=== PATIENT | female | born 1950 | race Caucasian/White ===

== ENCOUNTER 2022-11-05 08:39 | Outpatient (CLI) | payer MEDICARE, BC, SELFPAY ==
--- NOTE | 2022-11-05 09:15 | MR_ITS ---
[address] [address] Phone:?[phone] Fax:?[phone] Referring Physician Information: Papito Vaughn [address] [facility] [address] Phone:?[phone] Fax:?[phone] Patient:?Kesha Wilkinson D.O.B:?1950 Sex:?Female Phone:?[phone] [facility] MRN:?[id number] Exam Date:?11/05/2022 ? EXAM: MRI of the RIGHT KNEE, without contrast CLINICAL INFORMATION: Female, 72 years old, with right knee pain and history of synovial chondromatosis. INDICATION: Evaluate knee pain. PRIOR SURGERY: None reported. PLAIN FILMS: Knee radiographs dated 10/30/2020. COMPARISONS: No prior MRIs available. TECHNICAL INFORMATION: Using a 1.5T MR scanner and a localizing surface coil: sagittals: PD, PDFS coronals: PD, T2FS axials: PD, PDFS SEDATION: None CONTRAST: None FINDINGS: Knee joint: Effusion: Moderate right knee effusion, with synovitis. Popliteal cyst: Peauu-zlmgct-zrrgc popliteal (Escamilla's) cyst with approximately 10 subcentimeter ossific loose bodies located within the cyst. Loose bodies: A 5 mm ossific intra-articular body is present interposed in the central, weightbearing aspect of the lateral compartment (coronal STIR series 8 image 20). Additionally, there are 3 or 4 small ossific intra-articular bodies in the anterior aspect of the lateral compartment, likely located within a small ganglion cyst (sagittal PDFS series 6 image 9 and axial PDFS series 4 images 23 & 24). Subcutaneous and extra-articular soft tissues: Moderate-marked anterior subcutaneous soft tissue swelling extending from the patella to the tibial tubercle. Ligaments: ACL: Intact ACL anteromedial and posterolateral bundles, without sprain or tear. PCL: Intact PCL, without acute or chronic injury. MCL: Intact MCL superficial and deep layers, without injury. LCL: Intact LCL, without injury. Posterolateral corner: No posterolateral corner soft tissue injury. Popliteus, biceps femoris, iliotibial band, popliteofibular ligament and lateral gastrocnemius are intact. Posteromedial corner: No posteromedial corner soft tissue injury. Semimembranosus, pes anserine tendons and posterior oblique ligament are without injury, tendinopathy or bursitis. Extensor mechanism: Patellar tendon: Intact, without tendinopathy. Quadriceps tendon: Intact, without tendinopathy. Retinacula: Medial and lateral retinacula are intact. Fat pads: Moderate soft tissue edema is present throughout the knee fat pads, in keeping with synovitis. Medial compartment: Medial meniscus: Apical free edge and undersurface fraying is present throughout the medial meniscal body, without more well-defined medial meniscal tearing. Intrasubstance degeneration is present at the posterior horn/body junction. Medial femoral condyle: Broad-based grade II/III chondromalacia of the central surface, with mild marginal osteophytosis. Medial tibial plateau: Broad-based grade II chondromalacia of the medial tibial plateau, minimal marginal osteophytosis. Lateral compartment: Lateral meniscus: Apical free edge and superior surface fraying of the lateral meniscal body, without more well-defined lateral meniscal tear. However, meniscal extrusion measures 3 mm. No parameniscal cyst. Lateral femoral condyle: Generalized grade III chondromalacia of the lateral femoral condyle with a 5 x 16 mm full-thickness chondral defect of the central surface (coronal STIR series 8 image 21 and sagittal PDFS series 6 image 11). Mild-moderate marginal osteophytosis. Lateral tibial plateau: Generalized grade III/IV chondromalacia of the lateral tibial plateau, with mild marginal osteophytosis. Patellofemoral joint: Patella: Generalized grade III/IV chondromalacia of the patella, with moderate marginal osteophytosis. Trochlea: Generalized grade IV chondromalacia of the trochlea, with moderate- marked marginal osteophytosis. Proximal tibiofibular joint: Unremarkable, without evidence of ligament sprain injury, joint effusion or adjacent marrow edema. Bones: No stress/occult fractures or other marrow edema/pathology. IMPRESSION: 1. Advanced osteoarthritis of the patellofemoral compartment. 2. Moderate-advanced osteoarthritis of the lateral compartment. 3. Mild osteoarthritis of the medial compartment. 4. Moderate knee joint effusion with synovitis and a knvtg-bcewnh-gvrgj popliteal (Escamilla's) cyst. There are approximately 10 loose bodies located within the popliteal cyst and 5 additional ossific bodies in the joint space, largest of which is interposed in the central aspect of the lateral compartment measuring up to 5 mm. 5. Apical free edge and undersurface fraying of the medial meniscal body. Additionally, there is apical free edge and superior surface fraying of the lateral meniscal body. No evidence of a more well-defined or lateral meniscal tear. 6. No cruciate or collateral ligament sprain/tear. 7. No osseous or myotendinous abnormality. BC Electronically signed on 11/05/2022 12:55:00 PM by Luis Louis M.D.
== END 2022-11-05 08:40 | disposition home or self-care (01) ==
LOC: MRI 08:41
PROVIDERS: PCP Family Medicine; Visit Provider Physician Assistant
DX: M25.561 Pain in right knee (principal); M17.11 Unilateral primary osteoarthritis, right knee; M25.461 Effusion, right knee; M71.21 Synovial cyst of popliteal space [Baker], right knee; M23.41 Loose body in knee, right knee
CPT/HCPCS: 73721

== ENCOUNTER 2023-11-13 14:30 | Outpatient (CLI) | payer MEDICARE, BC, SELFPAY ==
--- OUTSIDE RECORDS SUMMARY | 2023-11-13 14:34 | XMS_ITS | Clinical Summary ---
Author Name Unknown Organization [facility] Address [address] [place] [address] Care Team Providers Care Horizontal Drill Operator Name Role Phone Elsewhere, Pcp Primary Care Provider Unavailabl e Source Comments Patient records contain information from all sites at [facility]. For routine questions regarding patient records, call [phone] during business hours, M-F 8:00 AM - 5:00 PM Central Time. Record requests for emergency care only can be directed to [phone] at any time.[facility] Allergies Active Allergy Reactions Criticality Noted Date Comments Codeine GI intolerance 02/26/2011 Hydrocodone-Acetaminophen GI intolerance 2010 Medications Medication Sig Dispensed Refills Start Date End Date Status TRUCK HOPPER THYROID 30 mg tablet Take 30 mg by mouth 2 (two) times a day. 3 02/15/2019 Active naproxen (NAPROSYN) 375 mg tablet Take 375 mg by mouth. 0 07/07/2018 Active acetaminophen (TYLENOL) 325 mg tablet 1-2 tablets every 4-6 hours as needed 0 07/15/2016 Active levothyroxine (SYNTHROID, LEVOTHROID) 88 mcg tablet Take 88 mcg by mouth daily with breakfast. 0 02/16/2021 Active Active Problems Problem Noted Date Diagnosed Date Autoimmune Thyroid Disease 04/26/2021 Cystocele 04/26/2021 Overview: Managing symptomatic cystocele effectively with pessary. Incontinence Urinary Stress Female 04/26/2021 Overview: Managing stress urinary incontinence effectively with anti incontinence pessary. Pessary Check 04/26/2021 Overview: Utilizing size 5 ring pessary without support with knob for management of her stress urinary incontinence. Managing independently. No concerns. Follow-up as needed. Obesity Unspecified 01/12/2018 Immunizations Name Administration Dates Next Due Tdap 05/31/2009 Social History Tobacco Use Types Packs/Day Years Used Date Smoking Tobacco: Never Smokeless Tobacco: Never Alcohol Use Standard Drinks/Week Comments Yes 5 (1 standard drink = 0.6 oz pur e alcohol) Humiliation, Afraid, Rape, and Kick questionnair e Answer Date Recorded Within the last year, have y ou been afraid of your partner or ex-partner? No 04/25/2021 Within the last year, have y ou been humiliated or emotionally abused in other ways by your partner or ex-partner? No Within the last year, have y ou been kicked, hit, slapped, or otherwise physically hurt by your partner or ex-partner? No 04/25/2021 Within the last year, have y ou been raped or forced to have any kind of sexual activity by your partner or ex-partner? No 04/25/2021 Social Connection and Isolation Panel [NHANES] A nswer Date Recorded In a typical week, how many times do you talk on the phone with family, friends, or neighbors? Twice a week 04/25/2021 How often do you get together with friends or re latives? Once a week 04/25/2021 How often do you attend religion or scientology serv ices? Never 04/25/2021 Do you belong to any clubs o r organizations such as religion groups, unions, fraternal or athletic groups, or school groups? No 04/25/2021 Attends Club or Organization Meetings Not on giles e 04/25/2021 Are you , , di vorced, , never , or living with a partner? 04/25/2021 AUDIT-C Answer Date Recorded Q1: How often do you have a drink containing alcohol? 4 or more times a week 04/25/2021 Q2: How many drinks containi ng alcohol do you have on a typical day when you are drinking? 1 or 2 Q3: How often do you have si x or more drinks on one occasion? Never 04/25/2021 Overall Financial Resource Strain (CARDIA) Answe r Date Recorded How hard is it for you to pa y for the very basics like food, housing, medical care, and heating? Not hard at all 04/25/2021 [facility] [place] of Occupat ional Health - Occupational Stress Questionnaire Answer Date Recorded Do you feel stress - tense, restless, nervous, or anxious, or unable to sleep at night because your mind is troubled all the time - these days? Only a little 04/25/2021 Exercise Vital Sign Answer Date Recorde d On average, how many days pe r week do you engage in moderate to strenuous exercise (like a brisk walk)? 5 days 04/25/2021 On average, how many minutes do you engage in exercise at this level? 50 min 04/25/2021 Hunger Vital Sign Answer Date Recorded Within the past 12 months, y ou worried that your food would run out before you got the money to buy more. Never true 04/25/20 21 Within the past 12 months, t he food you bought just didn't last and you didn't have money to get more. Never true 04/25/2021 PRAPARE - Transportation Answer Date Re corded In the past 12 months, has l ack of transportation kept you from medical appointments or from getting medications? No 04/04 In the past 12 months, has l ack of transportation kept you from meetings, work, or from getting things needed for daily living? No 04/25/2021 Housing Stability Vital Sign Answer Brad e Recorded In the last 12 months, was t here a time when you were not able to pay the mortgage or rent on time? No 04/25/2021 In the last 12 months, how many places have you lived? 1 04/25/2021 In the last 12 months, was t here a time when you did not have a steady place to sleep or slept in a residential (including now)? No 04/25/2021 Nutrition Answer Date Recorded Nutrition: EVOO Fat Source Yes 04/25 On average, how many serving s of fruits and vegetables do you eat per day (serving size is equal to 1 cup or approximately the size of a tennis ball)? 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 Associate degree: occupational, technical, or vocational program 09/05/2019 Sex and Gender Information Value Date Recorded Sex Assigned at Not on file Gender Identity Female 09/05/2019 9:33 AM LASER BEAM CUTTER Sexual Orientation Straight 09/05/2019 9: 33 AM LASER BEAM CUTTER Last Filed Vital Signs Vital Sign Reading Time Taken Comments Blood Pressure 130/80 03/18/2023 8:21 AM CDT Pulse 62 09/08/2019 9:27 AM LASER BEAM CUTTER Temperature - - Respiratory Rate 16 07/04/2016 1:03 PM CDT Oxygen Saturation - - Inhaled Oxygen Concentration - - Weight 77.6 kg (170 lb 15.5 oz) 03/18/2023 8:21 AM CDT Height 166 cm (5' 5.35) 07/15/2016 3:26 PM CDT Body Mass Index 28.14 07/15/2016 3:26 PM CDT Plan of Treatment Health Maintenance Due Date Last Done Comments CT Colonography 1950 Cologuard 1950 FIT 1950 Hepatitis C Screening 1950 Mammogram 1950 Depression Screening (Annual PHQ-2) 11/03/2023 Fall Risk Screen (Annual) 11/03/2023 Thyroid Stimulating Hormone (TSH) test for thyroid function 12/05/2023 12/05/2022, 02/11/2022, 02/15/2021, Additional history exists Fasting Glucose for Diabetes Screening 12/05/2025 12/05/2022, 02/11/2022, 02/15/2021, Additional history exists Colonoscopy 07/01/2026 07/01/2016 Colorectal Cancer Screening 07/01/2026 DTaP,Tdap,and Td Vaccines (3 - Td or Tdap) 03/23/2031 03/23/2021, 05/31/2009 Pneumococcal vaccine (65+ years) Completed 08/16/20 19, 08/10/2018 Zoster Vaccines Completed 09/08/2019, 07/06/2019 COVID-19 Vaccine Completed 08/08/2023, 02/2022, 02/15/2022, Additional history exists Influenza Vaccine Completed 08/08/2023, , 08/28/2021, Additional history exists Advance Directives For more information, please contact: [phone] Documents on File Type Date Recorded Patient Manager Cosmetics Expl anation Advance Directives 03/25/2019 12:50 PM Angie kay Bequest to [facility] Care Teams Horizontal Drill Operator Relationship Specialty Start Date End Date Elsewhere, Pcp PCP - General Internal Medicine 08/02/19
--- OUTSIDE RECORDS SUMMARY | 2023-11-13 14:34 | XMS_ITS | Encounter Summary ---
Author Name Unknown Organization [facility] Address [address] [place] [address] Care Team Providers Care Charge Master Analyst Name Role Phone Elsewhere, Pcp Primary Care Provider Unavailabl e Reason for Visit * Reason Comments Pessary Check * Appointment Request (Routine) - Closed Specialty Diagnoses / Procedures Referred By Contac t Referred To Contact Obstetrics and Gynecology Referral ID Status Reason Start Date Expiration Date Visits Re quested Visits Authorized [id number] Closed 03/11/2023 03/10/2024 1 1 Encounter Details Date Type Department Care Team (Late st Contact Info) Description 03/18/2023 8:30 AM CDT Office Visit Department of Obstetrics and Gynecology in [address] [phone] Sarahy Bai, ATHLETIC DIRECTOR, C.N.P. [address] [phone] Cystocele (Primary Dx); Pessary Check; Incontinence Urinary Stress Female Discharge Disposition: Home or Self Care Social History Tobacco Use Types Packs/Day Years [...] week 04/25/2021 How often do you attend buddhist or sabianist serv ices? Never 04/25/2021 Do you belong to any clubs o r organizations such as buddhist groups, unions, fraternal or athletic groups, or [...] and heating? Not hard at all 04/25/2021 [facility] [place] of Occupat ional Health - Occupational Stress [...] money to buy more. Never true 04/25/20 Within the past 12 months, t he [...] place to sleep or slept in a retirement (including now)? No 04/25/2021 Nutrition Answer Date [...] file Gender Identity Female 09/05/2019 9:33 AM HOT STONE SETTER Sexual Orientation Straight 09/05/2019 9: 33 AM HOT STONE SETTER documented as of this encounter Last Filed Vital Signs Vital Sign Reading Time Taken Comments Blood Pressure 130/80 03/18/2023 8:21 AM CDT Pulse - - Temperature - - Respiratory Rate - - Oxygen Saturation - - Inhaled Oxygen Concentration - - Weight 77.6 kg (170 lb 15.5 oz) 03/18/2023 8:21 AM CDT Height - - Body Mass Index 28.14 07/15/2016 3:26 PM CDT documented in this encounter Progress Notes * Sarahy Bia APRN, C.N.P. - 03/18/2023 8:30 AM CDT SUBJECTIVE Chief Complaint Patient presents with Pessary Check HISTORY OF PRESENT ILLNESS Kesha is a 72 y.o. female who presents for Pessary Check. She is utilizing a size 4 ring pessary with knob, without support for management of her stress urinary incontinence. She has been very pleased with it, but recently has noticed that it spontaneously expelled when she is lifting heavy objects while gardening. She is wondering if she needs to switch to a new pessary. She also notes that her current pessary is losing some of its elasticity and support. She denies any vaginal bleeding orconcerning discharge. No vaginal odor or other concerns. She is not using any vaginal estrogen at this point in time. She is no other concerns for me today. REVIEW OF SYSTEMS The following systems were negative: Constitutional, Skin, Eyes, ENT, Respiratory, Cardiovascular, Gastrointestinal, Genitourinary, Hematologic, Musculoskeletal, Neurological, Psychiatric The patient's allergies, current medications, and problem list were reviewed and updated as appropriate. OBJECTIVE BP 130/80 Wt 77.6 kg BMI 28.14 kg/m?? PHYSICAL EXAM General: She is a well-appearing female, in no acute distress.. Neurological: Alert and oriented x3. Abdomen: Soft and nontender. No rebound, no guarding. Pelvic exam: External genitalia appears atrophic but otherwise intact. Pessary is noted to be in the proper location. It was removed without any difficulty. Pessary was then washed with soap, scrubbed with Betadine, rinsed well, dried and set aside. Negative cough stress test. Hypermobility of the urethra is noted with cough stress test. Speculum exam was performed. Vaginal mucosa appears atrophic but otherwise intact. Cervix is pink and intact. She does have grade 2 cystocele, grade 2 uterine prolapse and appears to have adequate posterior support. A size 5 ring pessary with knob, without support was inserted without any difficulty. She was asked to walk around the room and bend over and did so without any discomfort or dislodging of the pessary. She would like to trial this pessary going forward. Extremities: No clubbing cyanosis or edema. Nontender bilaterally. Education Analyst: Maryjane Hale LPN ASSESSMENT / PLAN #1 Pessary Check Overview: Utilizing size 5 ring pessary without support with knob for management of her stress urinary incontinence. Managing independently. No concerns. Follow-up as needed. #2 Cystocele Overview: Managing symptomatic cystocele effectively with pessary. #3 Incontinence Urinary Stress Female Overview: Managing stress urinary incontinence effectively with anti incontinence pessary. She was refit with a size 5 ring pessary with knob without support today. She will trial that and let me know if she is not happy with the size 5 pessary. I would be happy to mail her out a size 4 ring pessary with knob without support. She will plan to follow up as necessary. Queenie Palmer Student from the [facility] Physician Lithograph Printer Program was present throughout this visit. She participated in collection of history, portions of physical exam, and/or developmentof plan of care under my direct supervision. Sarahy Bai APRN, C.N.P. documented in this encounter Plan of Treatment Not on file documented as of this encounter Visit Diagnoses Diagnosis Cystocele- Primary Pessary Check Incontinence Urinary Stress Female documented in this encounter Additional Health Concerns Assessment Noted Time PHQ-9 Depression Total Score: 2 11/07/19 16 1:25 PM HOT STONE SETTER documented as of this encounter Care Teams Charge Master Analyst Relationship Specialty Start Date End Date Elsewhere, Pcp PCP - General Internal Medicine 08/02/19 documented as of this encounter
--- OUTSIDE RECORDS SUMMARY | 2023-11-13 14:34 | XMS_ITS | Clinical Summary ---
Author Name Unknown Organization [facility] Address [place], [place] [address] Care Team Providers Care Trust Administrative Assistant Name Role Phone Trudy Torres NP Primary Care Provider [phone] Allergies Active Allergy Reactions Criticality Noted Date Comments Codeine *Unknown 06/26/2016 Hydrocodone-Acetaminophen *Unknown 06/26/2016 Medications Medication Sig Dispensed Refills Start Date End Date Status acetaminophen SR (TYLENOL ARTHRITIS) 650 mg Extended-Release tablet Take 1-2 Tablets (650-1,300 mg) by mouth every 8 hours if needed. Max acetaminophen dose: 4000mg in 24 hrs. 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 Female cystocele 04/26/2021 Overview: Managing symptomatic cystocele effectively with pessary. Encounter for pessary maintenance 04/26/2021 Overview: Utilizing size 3 ring pessary with support with knob, or size 4 ring pessary without support with knob for management of her stress urinary incontinence. Managing independently. No concerns. 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 Diarrhea 01/04/2020 Encounters Date Type Department Care Team Description 11/06/2023 Refill [facility] [address] [place] [address] Trudy Torres NP Refill Request (Levothyroxine) 2023 Telephone [facility] [address] [place] [address] Trudy Torres NP Screening from Last 3 Months Immunizations Name Administration Dates Next Due COVID-19 vaccine ([employer]-Bio NTech 30mcg/0.3mL) 12YO+ NORMA-SUCROSE PF, MDV 02/15/2022 COVID-19 vaccine ([employer]-Bio NTech 30mcg/0.3mL) PF, MDV 08/09/2021,01/27/2021,01/06/2021 Influenza, High-dose Inactivated 08/16/2019,06/2018 Influenza, Inactivated AIIV4 (Age 65+ Years) Preserv Free 08/02/2022,08/28/2021,07/01/2020 Pneumococcal Poly,23-Valent (Pneumovax) 08/16/20 19 Pneumococcal conj 13-Valent (Prevnar 13) 018 Tdap 03/23/2021,05/31/2009 Zoster (Shingrix-RZV, recombinant) 09/08/2019, Family History Medical History Relation Name Comments Cassandra's thyroiditis Daughter Heart Disease Father smoker Heart Disease Mother smoker Cassandra's thyroiditis Son Cancer-breast No Family History Cancer-colon No Family History Relation Name Status Comments Daughter Father Maternal Grandfather Maternal Grandmother Mother Paternal Grandfather Paternal Grandmother Sister Leyla Alive Son Social History Tobacco Use Types Packs/Day Years Used Date Smoking Tobacco: Former Cigarettes 1 0 02/11/1967 - 02/12/1968 Smokeless Tobacco: Never Tobacco Cessation:Counseling Given: Yes Alcohol Use Standard Drinks/Week Comments Yes 0 (1 standard drink = 0.6 oz pur e alcohol) 1-2 glasses of wine daily PHQ-2 Answer Date Recorded PHQ-2 TOTAL SCORE 0 02/18/2022 Social Connections Answer Date Recorded Frequency of Communication with Friends and Fami ly 0 12/03/2022 Financial Resource Strain Answer Date R ecorded Difficulty of Paying Living Expenses 3 12/03/2022 Difficulty of Paying Living Expenses Not on file 12/03/2022 Food Insecurity Answer Date Recorded Worried About Running Out of Food in the Last Ye ar 1 12/03/2022 Transportation Needs Answer Date Record ed Lack of Transportation (Medical) 1 12/03/2022 Housing Stability Answer Date Recorded Unable to Pay for Housing in the Last Year 1 12/03/2022 Sex and Gender Information Value Date Recorded Sex Assigned at Female 01/03/2021 8:16 AM NEWS AGENT Gender Identity Female 01/03/2021 8:16 AM NEWS AGENT Sexual Orientation Straight 01/03/2021 8: 16 AM NEWS AGENT Obstetrics History Last Filed Vital Signs Vital Sign Reading Time Taken Comments Blood Pressure 115/76 02/07/2023 3:35 PM CDT Pulse 68 02/07/2023 3:35 PM CDT Temperature 36.8 ??C (98.3 ??F) 12/05/2022 1 2:52 PM NEWS AGENT Respiratory Rate 18 12/05/2022 12:5 2 PM NEWS AGENT Oxygen Saturation 96% 02/07/2023 3:35 PM CDT Inhaled Oxygen Concentration - - Weight 77.5 kg (170 lb 13.7 oz) 02/07/2023 3:35 PM CDT Height 165.4 cm (5' 5.12) 12/05/2022 1 2:52 PM NEWS AGENT Body Mass Index 28.33 12/05/2022 12:52 PM NEWS AGENT Plan of Treatment Health Maintenance Due Date Last Done Comments Mammogram for age 45-75 03/01/2022 03/01/2021, 11/26 Depression screening for age 12+ 02/18/2023 02/18/2022, 02/15/2021, 11/11/2019, Additional history exists Medicare Wellness for age 65+ 02/18/2023, 02/15/2021, 11/11/2019, Additional history exists COVID-19 vaccine series ( season) 2023 08/06/2022, 02/15/2022, 08/09/2021, Additional history exists Influenza for age 65+ 07/04/2023 08/02/2022 , 08/28/2021, 07/01/2020, Additional history exists BMI (ht and wt on same day) for age 18+ 12/05/2023 12/05/2022, 02/11/2022, 02/15/2021, Additional history exists Colonoscopy through age 75 04/30/2024 04/30/2019, Lipids for age 45-75 02/11/2027 02/11/2022, 02/15/2021, 11/09/2019, Additional history exists Tetanus booster 03/23/2031 03/23/2021, 05/31/2009 Pneumococcal series for age 65+ Completed 9, 08/10/2018 Zoster (shingles) series for age 50+ Completed 09/08/2019, 07/06/2019 Hepatitis C screening for ag e 18-79 Completed 02/15/2021 DEXA/DXA scan for age 65+ Completed 02/20/2021 Tdap Completed 03/23/2021, 05/31/2009 Advance Directives Latest Code Status on File Code Status Date Activated Date Inactivated Comments Full Code 04/30/2019 11:23 AM 04/30/2019 4:58 PM Question Answer Comments Code Status Discussion: Discussed Code Status History Code Status Date Activated Date Inactivated Comments Full Code 07/01/2016 9:31 AM 07/02/2016 11:45 AM Care Teams Trust Administrative Assistant Relationship Specialty Start Date End Date Trudy Torres NP [address] [place] [address] PCP - General Nurse Practitioner - Family 02/11/22
--- OUTSIDE RECORDS SUMMARY | 2023-11-13 14:34 | XMS_ITS | Referral Summary ---
Author Name Unknown Organization [facility] Address [address] [place] [address] Care Team Providers Care Full Decator Operator Name Role Phone Elsewhere, Pcp Primary Care Provider Unavailabl e Source Comments Patient records contain information from all sites at [facility]. For routine questions regarding patient records, call [phone] during business hours, M-F 8:00 AM - 5:00 PM Central Time. Record requests for emergency care only can be directed to [phone] at any time.[facility] Allergies Active Allergy Reactions Criticality Noted Date Comments Codeine GI intolerance 02/26/2011 Hydrocodone-Acetaminophen GI intolerance 2010 Medications Medication Sig Dispensed Refills Start Date End Date Status ADJUTANT GENERAL THYROID 30 mg tablet Take 30 mg [...] week 04/25/2021 How often do you attend denominational or christianity serv ices? Never 04/25/2021 Do you belong to any clubs o r organizations such as denominational groups, unions, fraternal or athletic groups, or [...] and heating? Not hard at all 04/25/2021 [facility] Occupat ional Health - Occupational Stress [...] place to sleep or slept in a intermediate (including now)? No 04/25/2021 Nutrition Answer Date [...] file Gender Identity Female 09/05/2019 9:33 AM RETENTION MANAGER Sexual Orientation Straight 09/05/2019 9: 33 AM RETENTION MANAGER Last Filed Vital Signs Vital Sign Reading Time Taken Comments Blood Pressure 130/80 03/18/2023 8:21 AM CDT Pulse 62 09/08/2019 9:27 AM RETENTION MANAGER Temperature - - Respiratory Rate 16 07/04/2016 1:03 PM CDT Oxygen Saturation - - Inhaled Oxygen Concentration - - Weight 77.6 kg (170 lb 15.5 oz) 03/18/2023 8:21 AM CDT Height 166 cm (5' 5.35) 07/15/2016 3:26 PM CDT Body Mass Index 28.14 07/15/2016 3:26 PM CDT Plan of Treatment Not on file Advance Directives For more information, please contact: [phone] Documents on File Type Date Recorded Patient Junior Software Developer Expl anation Advance Directives 03/25/2019 12:50 PM Angie kay Bequest to [facility] Care Teams Full Decator Operator Relationship Specialty Start Date End Date Elsewhere, Pcp PCP - General Internal Medicine 08/02/19
--- OUTSIDE RECORDS SUMMARY | 2023-11-13 14:34 | XMS_ITS ---
Author Name Unknown Organization [facility] Address [address] [place] [address] Care Team Providers Care Extension Educator Name Role Phone Unavailable Unavailable Unavailable Surgery Details Not on file Complications Check Surgery Details section. Procedure Estimated Blood Loss Check Surgery Details section. Procedure Findings Check Surgery Details section. Procedure Specimens Taken Check Surgery Details section.
== END 2023-11-13 14:31 | disposition home or self-care (01) ==
PROVIDERS: PCP Family Medicine; Visit Provider Family Medicine
DX: Z00.00 Encounter for general adult medical examination without abnormal findings (principal); E78.5 Hyperlipidemia, unspecified; E03.9 Hypothyroidism, unspecified; N39.3 Stress incontinence (female) (male); R53.83 Other fatigue; M85.80 Other specified disorders of bone density and structure, unspecified site
CPT/HCPCS: 80053; 80061; 82306; 82607; 84443

== ENCOUNTER 2024-02-03 15:18 | Outpatient (CLI) | payer MEDICARE, BC, SELFPAY | END 2024-02-03 15:19 | disposition home or self-care (01) | LOC: NFLDREF 15:19 | PROVIDERS: PCP Family Medicine; Visit Provider Family Medicine | DX: R79.89 Other specified abnormal findings of blood chemistry (principal) | CPT/HCPCS: 82607 ==

== ENCOUNTER 2024-02-05 12:49 | Outpatient (CLI) | payer MEDICARE, BC, SELFPAY ==
--- NOTE | 2024-02-05 13:00 | MM_ITS ---
Patient: KAUSHAL RANDALL Facility:?[facility] Patient ID:?[id number] Site Patient ID:?[id number] Site :?[id number] Study:?XRay-Breast Bilateral 3D AND CAD-02/05/2024 10:28:46 AM Ordering Physician:?DR. KAUFMAN Final Report: BILATERAL SCREENING MAMMOGRAM WITH COMPUTER-AIDED DETECTION AND TOMOSYNTHESIS TECHNIQUE: CC and MLO views were obtained. These mammographic images have been obtained using full-field digital technique. These mammographic images were interpreted with the benefit of computer-aided detection. Breast Tomosynthesis was used in this interpretation. COMPARISON FILM: 03/01/21. FINDINGS: There are scattered areas of fibroglandular density. IMPRESSION: There is no radiographic evidence for malignancy. ASSESSMENT: BI-RADS Category 1: Negative RECOMMENDATION: Routine screening mammogram in 1 year. A lay language report of this examination will be provided to the patient. Denis Villeda M.D. Diagnostic Radiologist [email or web address] DSM/sp R& Transcribed: 11:59 a.mJesica SP/Dictated by: Denis Villeda MD @ 02/09/2024 11:31:00 AM Signed by:?Denis Villeda MD @02/09/2024 12:12:26 PM (Electronic Signature)
--- NOTE | 2024-02-05 13:30 | XR_ITS ---
Patient: KAUSHAL RANDALL Facility:?[facility] Patient ID:?[id number] Site Patient ID:?[id number]. Site :?[id number] Study:?DEXA-Bone Density -02/05/2024 3:03:40 PM Ordering Physician:SHAN Final Report: DXA BONE MINERAL DENSITY STUDY Reason for exam: Osteopenia. 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 Current height (in): 65.0. Weight (lb): 164.0. Menopause age: 53. Ethnicity: White. 1. Have you had a previous hip or vertebral fracture? No. 2. Have you had any fractures during your adult life which did not result from significant trauma (e.g., auto accident)? No. 3. Did either of your parents have a hip fracture? No. 4. Do you smoke? No. 5. Have you ever taken Glucocorticoids? No. 6. Do you have rheumatoid arthritis? No. 7. Do you have secondary osteoporosis? No. 8. Do you drink 3 or more alcoholic drinks per day? No. 9. Are you being treated for osteoporosis? No. 10. Have you ever taken any of the following medications: Actonel, Evista, Fosamax, Miacalcin, Reclast, Boniva, Forteo, HRT (i.e. estrogen/hormone therapy), Protelos, Prolia, Vitamin D, Calcium, other ? please specify. ANSWER: Yes, vitamin D, calcium. 11. Do you have any of the following medical conditions: Anorexia or bulimia, asthma or emphysema, end stage renal disease, hyperparathyroidism, any seizure disorders, cancer, inflammatory bowel diseases, hysterectomy, other ? please specify. ANSWER: No. 12. What was your maximum height (inches)? 66. 13. Do you perform weight bearing exercise regularly? No. 14. Do you regularly consume dairy products? No. 15. Do you drink caffeinated beverages? Yes. 16. At what age did your period start? 12. 17. Are you premenopausal? No. 18. How many full term pregnancies have you had? 2. 19. Have you ever missed your period for more than 6 months in a row (not including or menopause)? No. TECHNIQUE: Bone mineral density study was performed using the [employer]. FINDINGS: The results of the study expressed as bone mineral density (BMD) are as follows: Lumbar spine L1 to L3: BMD: 1.065 g/cm2. T-score: 0.4. Z-score: 2.7. Neck Left: BMD: 0.734 g/cm2. T-score: -1.0. Z-score: 1.0. Right: BMD: 0.702 g/cm2. T-score: -1.3. Z-score: 0.7. Total Left: BMD: 0.914 g/cm2. T-score: -0.2. Z-score: 1.5. Right: BMD: 0.902 g/cm2. T-score: -0.3. Z-score: 1.4. IMPRESSION: Osteopenia. FRAX 10-year Fracture Risk Major Osteoporotic Fracture: 10 percent Hip Fracture: 1.6 percent Reported Risk Factors: [place] () Neck BMD=0.702, BMI=27.3 Denis Villeda M.D. Diagnostic Radiologist [email or web address] LINA/ivan / be/Dictated by: Denis Villeda MD @ 02/06/2024 1:40:00 PM Signed by:?Denis Villeda MD @02/06/2024 3:12:39 PM (Electronic Signature)
== END 2024-02-05 12:50 | disposition home or self-care (01) ==
LOC: MAMMO 12:50
PROVIDERS: PCP Family Medicine; Visit Provider Family Medicine
DX: Z12.31 Encounter for screening mammogram for malignant neoplasm of breast (principal); M85.80 Other specified disorders of bone density and structure, unspecified site; M85.88 Other specified disorders of bone density and structure, other site; Z78.0 Asymptomatic menopausal state
CPT/HCPCS: 77063; 77067; 77080

== ENCOUNTER 2024-02-13 08:57 | Outpatient (CLI) | payer MEDICARE, BC, SELFPAY ==
--- OUTSIDE RECORDS SUMMARY | 2024-02-13 09:00 | XMS_ITS | Data Portability ---
Author Name Unknown Address [address] [place] [address] Phone [phone] Organization [place] [facility] [employer] Address [address] [place] [address] Care Team Providers Care Outreach Clinician Name Role Phone WESLEY KAUFMAN Primary Care Provider Assessment Encounter Date Assessment Date Assessment LastModified by Organization Details LastModified Time 11/19/2023 11/19/2023 The patient was informed of her diagnosis as detailed down below. At this time she was informed that she has end stage hallux rigidus and that there is minimal conservative care options available at this stage. I did discuss Subiomed suspension inserts vs custom inserts with a 1st ray cutout for initial symptom management and surgical correction. The patient mentions that she has had unfortunate experiences post surgery in the past and is not interested with this treatment option. We will schedule her back for a Subiomed trial going forward. Not available 11/19/2023 13:02:10 12/03/2023 12/03/2023 The patient was informed of her diagnosis as detailed down below. At this time she was informed that she has end stage hallux rigidus and that there is minimal conservative care options available at this stage. I did discuss Subiomed suspension inserts vs custom inserts with a 1st ray cutout for initial symptom management and surgical correction. The patient mentions that she has had unfortunate experiences post surgery in the past and is not interested with this treatment option. The patient was trialed on Subiomed size 9 devices and she will be contacted back on Friday for a recheck of her Subiomed trial. Not available 12/03/2023 13:14:58 Plan of Treatment Reminders Order Date Submit Date Provider Last Modified By Organization Details Last Modified Time Details Appointments None record ed. Lab None record ed. Referral None record ed. Procedures None record ed. Surgeries None record ed. Imaging None record ed. Medication Orders None record ed. Patient TargetsNo targets recorded. Patient InstructionsNo instructions recorded. Reason for Referral None Reported. Medical Equipment None Reported. Allergies Allergen ID Allergen Name Allergen Category Reaction Reaction Severity Criticality Documentation Date Start Date Code Code System Note Provider Name and Address Organization Details Recorded Time codeine medicatio n Not available Not available Not available 11/19/2023 2670 RxNorm Zahida bowman [facility] 11:08:58 Medications Name Sig Start Date Stop Date Status Note LastModified by Organization Details LastModified Time levothyroxine 88 mcg tablet Take 1 tablet every day by oral route. active Not Available Not Available No t Available Vitals Date Recorded Body height Body mass index (BMI) Body weight Provider Name and Address Organization Details Last Updated DateTime 11/19/2023 165.1 cm 25.8 kg/m2 76865.82 g Zahida bowman [facility] 11/19/2023 11:09:50 Social History None recorded. Functional Status None recorded. Mental Status None recorded. Family History Nothing Reported. Medical History No medical history recorded. Gynecological HistoryNo gynecological history recorded. Obstetrics History GPAL:G 0 P 0 0 0 0 Past Encounters Encounter ID Performer Location Encounter Start Date Encounter Closed Date Diagnosis/Indication Diagnosis SNOMED-CT Code [id number] JESSICA Luong [facility] [address] [place] [phone] 11/19/2023 11:13:59 11/19/2023 15:49:18 Acquired hallux limitus of left great toe 14986503028135 09 Acquired h allux limitus of right great toe [id number] 00 [id number] JESSICA Luong [facility] [address] [place] [phone] 12/03/2023 11:45:33 12/04/2023 10:52:20 Acquired hallux limitus of left great toe 04419911769644 09 Acquired h allux limitus of right great toe 44309150942211 00 Health Concerns Section Related Observation LastModified by Organization Detai ls LastModified Time None Recorded Concern Status LastModified by Organization Details LastModified Time None Recorded Advance Directives Directive None Recorded Payers Encounter Date Sequence Insurance Name Policy Number Policy Villasenor Covered Member ID Villasenor Member ID Guarantor Name 12/03/2023 1 [place]) [id number] Kesha Wilkinson [id number] Kesha Wilkinson 11/19/2023 2 [place] [id number] Kesha Wilkinson [id number] Kesha Minh Notes Date Note Type Note Provider Name and Address Organization Details Recorded Time 11/19/2023 text/html HPI Notes: Esme flores is a 73 year old female new patient who presents to clinic today for evaluation for left foot pain. The patient mentions that she had radiographs taken by an outside provider that revealed significant evidence of osteoarthritis and she presents to clinic today for further cares. Jovi William DPM [address] [place], [address], [facility] - [facility] 11/19/2023 13:02:13 12/03/2023 text/html HPI Notes: Esme flores is a 73 year old female who presents today for a Subiomed trial. The patient was previously seen on 11/19/2023 at which time the patient was informed of her diagnosis as severe hallux rigidus and she was informed of both conservative and surgical cares. Jovi William DPM [address] [place], [address], [facility] 12/03/2023 13:15:01 OBGyn Episode No OBEpisode recorded.
--- OUTSIDE RECORDS SUMMARY | 2024-02-13 09:00 | XMS_ITS | Continuity of Care Document ---
Author Name Unknown Address [address] [place] [address] Phone [phone] Organization [facility] Address [address] [facility] [address] [place] [place] [address] Care Team Providers Care Piano Machine Operator Name Role Phone MANDEEP WESLEY Primary Care Provider Assessment Encounter Date Assessment [...] back for a Subiomed trial going forward. [email or web address] Not available 11/19/2023 13:02:10 Plan of Treatment Reminders Order Date Submit [...] available Not available 11/19/2023 2670 RxNorm Zahida bowman, [facility] 11:08:58 Medications Name Sig Start Date Stop Date Status Note LastModified by Organization Details LastModified Time levothyroxine 88 mcg tablet Take 1 tablet every day by oral route. active Not Available Not Available No t Available Vitals Date Recorded Body height Body mass index (BMI) Body weight Provider Name and Address Organization Details Last Updated DateTime 11/19/2023 165.1 cm 25.8 kg/m2 81312.82 g Zahida Eldridge [place] bowman - [facility] 11/19/2023 11:09:50 Social History None recorded. Functional Status None recorded. Mental Status None recorded. Family History Nothing Reported. Medical History No medical history recorded. Gynecological HistoryNo gynecological history recorded. Obstetrics History GPAL:G 0 P 0 0 0 0 Past Encounters Encounter ID Performer Location Encounter Start Date Encounter Closed Date Diagnosis/Indication Diagnosis SNOMED-CT Code [id number] Jovi William DPM [facility] [address] [place] [address] [address] [place] [address] 11/19/2023 11:13:59 11/19/2023 15:49:18 Acquired hallux limitus of left great toe [id number] 09 Acquired h allux limitus of right great toe 26610154028879 00 Health Concerns Section Related Observation LastModified by Organization Detai ls LastModified Time None Recorded Concern Status LastModified by Organization Details LastModified Time None Recorded Payers Encounter Date Sequence Insurance Name Policy Number Policy Villasenor Covered Member ID Villasenor Member ID Guarantor Name 11/19/2023 2 [place] [id number] Kesha Wilkinson [id number] Kesha Wilkinson Notes Date Note Type Note Provider Name [...] for further cares. Jovi William DPM [address] [place], [address], [facility] 11/19/2023 13:02:13 OBGyn Episode No OBEpisode recorded.
--- OUTSIDE RECORDS SUMMARY | 2024-02-13 09:00 | XMS_ITS | Referral Summary ---
Author Name Unknown Organization [facility] Address [address] [place] [address] Care Team Providers Care Order Management Specialist Name Role Phone Elsewhere, Pcp Primary Care Provider Unavailabl e Source Comments Patient records contain information from all sites at [facility]. For routine questions regarding patient records, call [phone] during business hours, M-F 8:00 AM - 5:00 PM Central Time. Record requests for emergency care only can be directed to [phone] at any time.[facility] Allergies Active Allergy Reactions Criticality Noted Date Comments Codeine GI intolerance 02/26/2011 Hydrocodone-Acetaminophen GI intolerance 2010 Medications Medication Sig Dispensed Refills Start Date End Date Status APARTMENT MAINTENANCE THYROID 30 mg tablet Take 30 mg [...] week 04/25/2021 How often do you attend adventism or alevism serv ices? Never 04/25/2021 Do you belong to any clubs o r organizations such as adventism groups, unions, fraternal or athletic groups, or [...] and heating? Not hard at all 04/25/2021 [facility] [place] of Occupat ional Health - Occupational Stress [...] place to sleep or slept in a chcf (including now)? No 04/25/2021 Nutrition Answer Date [...] file Gender Identity Female 09/05/2019 9:33 AM DIESEL ENGINEER Sexual Orientation Straight 09/05/2019 9: 33 AM DIESEL ENGINEER Last Filed Vital Signs Vital Sign Reading Time Taken Comments Blood Pressure 130/80 03/18/2023 8:21 AM CDT Pulse 62 09/08/2019 9:27 AM DIESEL ENGINEER Temperature - - Respiratory Rate 16 07/04/2016 1:03 PM CDT Oxygen Saturation - - Inhaled Oxygen Concentration - - Weight 77.6 kg (170 lb 15.5 oz) 03/18/2023 8:21 AM CDT Height 166 cm (5' 5.35) 07/15/2016 3:26 PM CDT Body Mass Index 28.14 07/15/2016 3:26 PM CDT Plan of Treatment Not on file Advance Directives For more information, please contact: [phone] Documents on File Type Date Recorded Patient Global President Expl anation Advance Directives 03/25/2019 12:50 PM Angie kay Bequest to [facility] Care Teams Order Management Specialist Relationship Specialty Start Date End Date Elsewhere, Pcp PCP - General Internal Medicine 08/02/19
--- OUTSIDE RECORDS SUMMARY | 2024-02-13 09:00 | XMS_ITS | Continuity of Care Document ---
Author Name Unknown Address [address] [place] [address] Phone [phone] Organization [place] - [facility] [place] [facility] Address [facility] [address] [place] [address] Care Team Providers Care Health Education Teacher Name Role Phone WESLEY KAUFMAN Primary Care Provider Assessment Encounter Date Assessment Date Assessment LastModified by Organization Details LastModified Time 12/03/2023 12/03/2023 The patient was informed of [...] for a recheck of her Subiomed trial. [email or web address] Not available 12/03/2023 13:14:58 Plan of Treatment [...] Not available 11/19/2023 [id number] RxNorm Zahida bowman [place] - [facility] 11:08:58 Medications Name Sig Start Date Stop Date Status Note LastModified by Organization Details LastModified Time levothyroxine 88 mcg tablet Take 1 tablet every day by oral route. active Not Available Not Available No t Available Vitals None Recorded Social History None recorded. Functional Status None recorded. Mental Status None recorded. Family History Nothing Reported. Medical History No medical history recorded. Gynecological HistoryNo gynecological history recorded. Obstetrics History GPAL:G 0 P 0 0 0 0 Past Encounters Encounter ID Performer Location Encounter Start Date Encounter Closed Date Diagnosis/Indication Diagnosis SNOMED-CT Code [id number] Jovi William DPM [place] [facility] [address] [place] [id number] 11/19/2023 11:13:59 11/19/2023 15:49:18 Acquired hallux limitus of left great toe [id number] 09 Acquired h allux limitus of right great toe [id number] 00 [id number] Jovi William DPM [place] [facility] [address] [place] [phone] 12/03/2023 11:45:33 12/04/2023 10:52:20 Acquired hallux limitus of left great toe [id number] 09 Acquired h allux limitus of right great toe [id number] 00 Health Concerns Section Related Observation LastModified by Organization Detai ls LastModified Time None Recorded Concern Status LastModified by Organization Details LastModified Time None Recorded Payers Encounter Date Sequence Insurance Name Policy Number Policy Villasenor Covered Member ID Villasenor Member ID Guarantor Name 12/03/2023 1 [facility]: (MEDICARE REPLACEMENT PPO) [id number] Kesha Wilkinson [id number] Kesha Wilkinson Notes Date Note Type Note Provider Name and Address Organization Details Recorded Time 12/03/2023 text/html HPI Notes: Esme flores is a 73 year old female who presents today for a Subiomed trial. The patient was previously seen on 11/19/2023 at which time the patient was informed of her diagnosis as severe hallux rigidus and she was informed of both conservative and surgical cares. Jovi William DPM [address] [place], [address], [facility] - [facility] 12/03/2023 13:15:01 OBGyn Episode No OBEpisode recorded.
--- OUTSIDE RECORDS SUMMARY | 2024-02-13 09:00 | XMS_ITS | Clinical Summary ---
Author Name Unknown Organization [facility] Address [address] [place] [address] Care Team Providers Care Vp Securities Name Role Phone Elsewhere, Pcp Primary Care Provider Unavailabl e Source Comments Patient records contain information from all sites at [facility]. For routine questions regarding patient records, call [phone] during business hours, M-F 8:00 AM - 5:00 PM Central Time. Record requests for emergency care only can be directed to [phone] at any time.[facility] Allergies Active Allergy Reactions Criticality Noted Date Comments Codeine GI intolerance 02/26/2011 Hydrocodone-Acetaminophen GI intolerance 2010 Medications Medication Sig Dispensed Refills Start Date End Date Status DRUM CARRIER THYROID 30 mg tablet Take 30 mg [...] week 04/25/2021 How often do you attend confucianist or zoroastrianism serv ices? Never 04/25/2021 Do you belong to any clubs o r organizations such as confucianist groups, unions, fraternal or athletic groups, or [...] and heating? Not hard at all 04/25/2021 [facility] [place] [facility] Occupat ional Health - Occupational Stress [...] place to sleep or slept in a nursing home (including now)? 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 Care Teams Vp Securities Relationship Specialty Start Date End Date Elsewhere, Pcp PCP - General Internal Medicine 08/02/19
--- OUTSIDE RECORDS SUMMARY | 2024-02-13 09:00 | XMS_ITS ---
Author Name Unknown Organization [facility] Address [address] [place] [address] Care Team Providers Care Cyber Security Systems Engineer Name Role Phone Unavailable Unavailable Unavailable Surgery Details Not on file Complications Check Surgery Details section. Procedure Estimated Blood Loss Check Surgery Details section. Procedure Findings Check Surgery Details section. Procedure Specimens Taken Check Surgery Details section.
--- OUTSIDE RECORDS SUMMARY | 2024-02-13 09:00 | XMS_ITS | Clinical Summary ---
Author Name Unknown Organization [facility] Address [place], [place] [address] Care Team Providers Care Rn Otolaryngology Name Role Phone Trudy Torres NP Primary Care Provider [phone] Allergies Active Allergy Reactions Criticality Noted Date Comments Codeine *Unknown 06/26/2016 Hydrocodone-Acetaminophen *Unknown 06/26/2016 Medications Medication Sig Dispensed Refills Start Date End Date Status acetaminophen SR (TYLENOL ARTHRITIS) 650 mg Extended-Release tablet Take 1-2 Tablets (650-1,300 mg) by mouth every 8 hours if needed. Max acetaminophen dose: 4000mg in 24 hrs. 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 No concerns. 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 Diarrhea 01/04/2020 Immunizations Name Administration Dates Next Due COVID-19 vaccine ([employer] NTech 30mcg/0.3mL) 12YO+ NORMA-SUCROSE PF, MDV 02/15/2022 COVID-19 vaccine ([employer] NTech 30mcg/0.3mL) PF, MDV 08/09/2021,01/27/2021,01/06/2021 Influenza, High-dose [...] Years Used Date Smoking Tobacco: Former Cigarettes 0 02/11/1967 - 02/12/1968 Smokeless Tobacco: Never Tobacco Cessation:Counseling Given: Yes Alcohol Use Standard Drinks/Week Comments Yes 0 (1 standard drink = 0.6 oz pur e alcohol) 1-2 glasses of wine daily PHQ-2 Answer Date Recorded PHQ-2 TOTAL SCORE 0 02/18/2022 Social Connections Answer Date Recorded Frequency of Communication with Friends and Fami ly Not on file 12/04/2023 Financial Resource Strain Answer Date R ecorded [...] Sex Assigned at Female 01/03/2021 8:16 AM RETAIL EXPERIENCE SPECIALIST Gender Identity Female 01/03/2021 8:16 AM RETAIL EXPERIENCE SPECIALIST Sexual Orientation Straight 01/03/2021 8: 16 AM RETAIL EXPERIENCE SPECIALIST Obstetrics History Last Filed Vital Signs Vital Sign Reading Time Taken Comments Blood Pressure 115/76 02/07/2023 3:35 PM CDT Pulse 68 02/07/2023 3:35 PM CDT Temperature 36.8 ??C (98.3 ??F) 12/05/2022 1 2:52 PM RETAIL EXPERIENCE SPECIALIST Respiratory Rate 18 12/05/2022 12:5 2 PM RETAIL EXPERIENCE SPECIALIST Oxygen Saturation 96% 02/07/2023 3:35 PM CDT Inhaled Oxygen Concentration - - Weight 77.5 kg (170 lb 13.7 oz) 02/07/2023 3:35 PM CDT Height 165.4 cm (5' 5.12) 12/05/2022 1 2:52 PM RETAIL EXPERIENCE SPECIALIST Body Mass Index 28.33 12/05/2022 12:52 PM RETAIL EXPERIENCE SPECIALIST Plan of Treatment Health Maintenance Due Date Last Done Comments Mammogram for age 45-75 03/01/2022 03/01/2021, 11/26 Depression screening for age 12+ 02/18/2023 02/18/2022, 02/15/2021, 11/11/2019, Additional history exists Medicare Wellness for age 65+ 02/19/2023, 02/15/2021, 11/11/2019, Additional history exists COVID-19 vaccine series ( season) 2023 08/06/2022, 02/15/2022, 08/09/2021, Additional history exists BMI (ht and wt on same day) for age 18+ 12/05/2023 12/05/2022, 02/11/2022, 02/15/2021, Additional history exists Colonoscopy through age 75 04/30/2024 04/30/2019, Influenza for age 65+ 07/04/2024 08/02/2022 , 08/28/2021, 07/01/2020, Additional history exists Lipids for age 45-75 02/11/2027 02/11/2022, 02/15/2021, 11/09/2019, Additional history exists Tetanus booster 03/23/2031 03/23/2021, 05/31/2009 Pneumococcal series for age 65+ Completed 9, 08/10/2018 Zoster (shingles) series for age 50+ Completed 09/08/2019, 07/06/2019 Hepatitis C screening for ag e 18-79 Completed 02/15/2021 DEXA/DXA scan for age 65+ Completed 02/20/2021 Tdap Completed 03/23/2021, 05/31/2009 Procedures Procedure Name Priority Date/Time Associated Diagnosis Comments LIPID PANEL W REFLEX MEASURED LDL Routine 02/11/2022 10:14 AM CDT Hyperlipidemia, unspecified hyperlipidemia type XR MAMMO ABDULLAHI BILAT SCREEN Routine 03/01/2021 1:08 PM CDT Visit for screening mammogram XR DXA BONE DENSITY 2 SITES AXIAL Routine 02/20/2021 1:57 PM CDT Menopause ANTI HCV Routine 02/15/2021 12:35 PM CDT Encounter for hepatitis C screening test for low risk patient COLONOSCOPY 04/30/2019 12:43 PM CDT from Last 3 Months or Most Recently Relevant to Health Maintenance Results * (ABNORMAL) LIPID PANEL W REFLEX MEASURED LDL (02/11/2022 10:14 AM CDT) CHOLESTEROL,TOTAL 229(H) 100 - 199 mg/dL 02/11/2022 11:06 AM CDT [facility] TRIGLYCERIDES 86 <150 mg/dL 02/11/2022 11:06 AM CDT [facility] HDL CHOLESTEROL 71 >40 mg/dL 11:06 AM CDT [facility] NON-HDL CHOLESTEROL 158(H) <145 mg/dl 02/11/2022 11:06 AM T [facility] CHOL/HDL RATIO 3.23 <4.50 02/11/2022 11:06 AM CDT [facility] LDL CHOLESTEROL 141(H) <=130 mg/dL 02/11/2022 11:06 AM T [facility] VLDL CHOLESTEROL 17 <=30 mg/dL 02/11/2022 11:06 AM T [facility] PROVIDER ORDERED STATUS RANDOM 02/11/2022 11:06 AM T [facility] Blood BLOOD SPECIMEN / Unknown Venipuncture / Unknown 02/11/2022 10:14 AM CDT 02/11/2022 10:16 AM CDT Trudy Torres NP CHEMISTRY Performing Organization Address City/State/[facility] Co de Phone Number [facility] [address] [place] [address] * XR MAMMO ABDULLAHI BILAT SCREEN (03/01/2021 1:08 PM CDT) Anatomical Region Laterality Modality BREASTS, Breast Left, Breast Right Bilateral Mammography Impressions 03/02/2021 6:33 AM CDT ??There is no radiographic evidence for malignancy. ??Recommend annual mammograms. MAMMOGRAM ASSESSMENT: ??ACR 1 Negative PATIENTS: You will also receive a letter with your examination results in an easy to read format. ??If you have questions about your results, please contact your referring provider. Narrative 03/02/2021 6:33 AM CDT XR MAMMO ABDULLAHI BILAT SCREEN [[id number]] CLINICAL HISTORY: ??This is an asymptomatic 70 y.o. patient. INDICATION FOR EXAM: Mammogram Screening. TECHNIQUE: CC & MLO views were obtained. ??This digital study was evaluated with the assistance of Computer-Aided Detection. Breast Tomosynthesis was used in interpretation. COMPARISON FILM: Yes 11/26/19 Amind ?? FINDINGS: ??The breasts have scattered areas of fibroglandular density. There are no dominant masses, suspicious micro calcifications or areas of architectural distortion. Wendy Patel MD MAMMO * (ABNORMAL) XR DXA BONE DENSITY 2 SITES AXIAL [11026.1] (02/20/2021 1:57 PM CDT) Anatomical Region Laterality Modality Spine, HIPS, HIPL, HIPR Computed Radiography Impressions 02/20/2021 3:32 PM CDT Osteopenia. ??Risk of fracture is low. RECOMMENDATIONS: The National Osteoporosis Foundation recommends pharmacologic treatment for patients with T-scores of -2.5 or less, patients with prior history of fragility fractures, or patients with 10-year probability of greater than 3% at hips or greater than 20% of suffering major osteoporotic fractures. Recommend continued optimization of calcium and vitamin D intake through dietary means and/or supplementation and regular exercise. Repeat scan recommended in 5-7 years. Narrative 02/20/2021 3:32 PM CDT XR DXA Bone Mineral Density (BMD) EXAM LOCATION: [address] [id number] PATIENT NAME: Kesha Wilkinson DATE OF : 1950 EXAM DATE: 02/20/2021 REQUESTING PROVIDER: Wendy Patel MD GENDER AT : female HEIGHT: 5' 5.28 (02/15/2021) WEIGHT: ??188 lb 4.8 oz (02/15/2021) MENOPAUSAL STATUS: Postmenopausal RACE/ETHNICITY: White RISK FACTORS: NO RISK FACTORS CURRENT MEDICATION FOR BONE LOSS: NONE INDICATION: SCREENING FOR OSTEOPOROSIS COMPARISON DATE(S): None PROCEDURE: Dual-energy x-ray absorptiometry performed with routine technique. Reporting is completed in the form of a T-score. The T-score represents the standard deviation from peak bone mass based on young healthy adult. A Z-score is used for diagnosis in premenopausal women, and for men under the age of 50. FINDINGS: RESULT LUMBAR SPINE L1 - L4 BMD: 1.260 g/cm2 T-Score: 0.7 RESULT FEMORAL NECK Bilateral Total Femoral Neck BMD: 0.846 g/cm2 T-Score: -1.4 RESULT TOTAL HIP Bilateral Total Hip BMD: 0.969 g/cm2 T-Score: -0.3 WHO criteria: Normal: T-score at or above -1 SD Osteopenia: T-score between -1.1 and -2.4 SD Osteoporosis: T-score at or below -2.5 SD FRAX RISK CALCULATION (USED FOR OSTEOPENIA ONLY): 10-year probability of major osteoporotic fracture: 9.4%. 10-year probability of hip fracture: 1.3%. Wendy Patel MD DEXA * ANTI HCV (02/15/2021 12:35 PM CDT) HEPATITIS C ANTIBODY Non-React cortes Non-React cortes 02/15/2021 9:53 PM CDT [facility] Comment:Antibodies to HCV no t detected; does not exclude the possibility of exposure to HCV. Blood BLOOD SPECIMEN / Unknown Venipuncture / Unknown 02/15/2021 12:35 PM CDT 02/15/2021 12:37 PM CDT Wendy Patel MD SEND OUTS [facility] [address] [place] [address], * COLONOSCOPY (04/30/2019 12:43 PM CDT) 04/30/2019 12:4 3 PM CDT Narrative Transcriptions Natalie Hollis DO - 05/03/2019 6:08 PM CDT Patient Name: Kesha Wilkinson Procedure Date: 04/30/2019 Gender: Female Date of : 1950 Admit Type: Ambulatory Procedure: Colonoscopy Proceduralist: Natalie Hollis MD [facility] Indications/Pre-Op Diagnosis: Chronic diarrhea Medications: Propofol per Anesthesia Procedure Description: The patient had risks, benefits and alternatives explained to andgave informed consent. The patient had a stable cardiopulmonary status and judged an adequate candidate for conscious sedation. The colonoscope was passed through the anus and advanced to theterminal ileum. The colonoscopy was performed without difficulty. The patient tolerated the procedure well. The quality of the bowel preparationwas good. The terminal ileum, ileocecal valve, appendiceal orifice, and rectum were photographed. Complications: No immediate complications. Estimated Blood Loss & Specimen: Estimated blood loss was minimal. Specimen collected - Yes and sent to Laboratory Findings: Biopsies were taken with a cold forceps in the terminal ileum for histology. Verification of patient identification for the specimenwas done. Estimated blood loss was minimal. Biopsies for histology were taken with a cold forceps from the entire colon for evaluation of microscopic colitis. A few small-mouthed diverticula were found in the sigmoid colon. Non-bleeding internal hemorrhoids were found during retroflexion. The hemorrhoids were Grade II (internal hemorrhoids that prolapse butreduce spontaneously). Impressions/Post-Op Diagnosis: - Diverticulosis in the sigmoid colon. - Non-bleeding internal hemorrhoids. - Biopsies were taken with a cold forceps for histology in theterminal ileum. - Biopsies were taken with a cold forceps from the entire colon for evaluation of microscopic colitis. Recommendation: - Discharge patient to home. - Patient has a contact number available for emergencies. The signsand symptoms of potential delayed complications were discussed with the patient. Return to normal activities tomorrow. Written discharge instructions were provided to the patient. - High fiber diet. - Await pathology results. - Repeat colonoscopy in 5 years for surveillance. Moderate Sedation: Moderate (conscious) sedation was personally administered by an anesthesia professional. The following parameters were monitored:oxygen saturation, heart rate, blood pressure, and response to care. Natalie Hollis MD 05/03/2019 6:08:05 PM This report has been signed electronically. Note Initiated On: 04/30/2019 12:43 PM Natalie Hollis DO PROCEDURE ORD from Last 3 Months or Most Recently Relevant to Health Maintenance Advance Directives * Full Code (Latest Code Status on File) Date Activated Date Inactivated Comments 04/30/2019 11:23 AM 04/30/2019 4:58 PM Question Answer Comments Code Status Discussion: Discussed * Full Code Date Activated Date Inactivated Comments 07/01/2016 9:31 AM 07/02/2016 11:45 AM Care Teams Rn Otolaryngology Relationship Specialty Start Date End Date Trudy Torres NP [address] [place] [address] PCP - General Nurse Practitioner - Family 02/11/22
--- NOTE | 2024-02-13 09:15 | MR_ITS ---
Patient: KAUSHAL RANDALL Facility:?[facility] Patient ID:?[id number] Site Patient ID:?[id number]. Site :?1950 Study:?MRI-Head WO-02/13/2024 9:56:03 AM Ordering Physician:SHAN Final Report: Indication: Difficulty swallowing. Aphasia TECHNIQUE: Sagittal T1 axial FLAIR T2 diffusion-weighted and susceptibility weighted images of the brain. FINDINGS: Lateral 3rd and 4th ventricles normal in size and configuration. Mild prominence of subarachnoid spaces due to mild volume loss. There is no evidence of recent ischemic infarction. There are no areas of diffusion restriction. There is no evidence of intracranial hemorrhage. There are no subdural fluid collections. There is no mass effect. Few punctate foci of FLAIR/T2 signal hyperintensity within supratentorial white matter are nonspecific findings common in this age group and consistent with mild chronic microvascular ischemia. Brainstem and cerebellum appear normal. Orbits, sella turcica paranasal sinuses and skull base are unremarkable. IMPRESSION: 1. No evidence of acute ischemic infarction, intracranial hemorrhage or mass lesion. 2. Minimal chronic small vessel ischemic changes. Dictated by Vince Hermosillo MD @ 02/13/2024 10:05:25 AM Signed by:?Vince Hermosillo MD @02/13/2024 10:05:25 AM (Electronic Signature)
== END 2024-02-13 08:58 | disposition home or self-care (01) ==
LOC: MRI 08:58
PROVIDERS: PCP Family Medicine; Visit Provider Family Medicine
DX: R13.10 Dysphagia, unspecified (principal); I67.82 Cerebral ischemia; R47.01 Aphasia
CPT/HCPCS: 70551

== ENCOUNTER 2024-03-12 12:53 | Outpatient (CLI) | payer MEDICARE, BC, SELFPAY ==
--- OUTSIDE RECORDS SUMMARY | 2024-03-12 12:56 | XMS_ITS | Clinical Summary ---
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 Diarrhea 01/04/2020 Immunizations Name Administration Dates Next Due COVID-19 vaccine ([employer] NTech 30mcg/0.3mL) 12YO+ NORMA-SUCROSE PF, MDV 02/15/2022 COVID-19 vaccine ([employer] NTech 30mcg/0.3mL) PF, MDV 08/09/2021,01/27/2021,01/06/2021 Influenza, High-dose [...] Sex Assigned at Female 01/03/2021 8:16 AM GENERAL CAR YARD SUPERVISOR Gender Identity Female 01/03/2021 8:16 AM GENERAL CAR YARD SUPERVISOR Sexual Orientation Straight 01/03/2021 8: 16 AM GENERAL CAR YARD SUPERVISOR Obstetrics History Last Filed Vital Signs Vital Sign Reading Time Taken Comments Blood Pressure 115/76 02/07/2023 3:35 PM CDT Pulse 68 02/07/2023 3:35 PM CDT Temperature 36.8 ??C (98.3 ??F) 12/05/2022 1 2:52 PM GENERAL CAR YARD SUPERVISOR Respiratory Rate 18 12/05/2022 12:5 2 PM GENERAL CAR YARD SUPERVISOR Oxygen Saturation 96% 02/07/2023 3:35 PM CDT Inhaled Oxygen Concentration - - Weight 77.5 kg (170 lb 13.7 oz) 02/07/2023 3:35 PM CDT Height 165.4 cm (5' 5.12) 12/05/2022 1 2:52 PM GENERAL CAR YARD SUPERVISOR Body Mass Index 28.33 12/05/2022 12:52 PM GENERAL CAR YARD SUPERVISOR Plan of Treatment Health Maintenance Due Date [...] - 199 mg/dL 02/11/2022 11:06 AM CDT [facility] TRIGLYCERIDES 86 <150 mg/dL 02/11/2022 11:06 AM CDT [facility] HDL CHOLESTEROL 71 >40 mg/dL 11:06 AM CDT [facility] NON-HDL CHOLESTEROL 158(H) <145 mg/dl 02/11/2022 11:06 AM T [facility] CHOL/HDL RATIO 3.23 <4.50 02/11/2022 11:06 AM CDT [facility] LDL CHOLESTEROL 141(H) <=130 mg/dL 02/11/2022 11:06 AM T [facility] VLDL CHOLESTEROL 17 <=30 mg/dL 02/11/2022 11:06 AM T [facility] PROVIDER ORDERED STATUS RANDOM 02/11/2022 11:06 AM T [facility] Blood BLOOD SPECIMEN / Unknown Venipuncture / Unknown 02/11/2022 10:14 AM CDT 02/11/2022 10:16 AM CDT Trudy Torres NP CHEMISTRY Performing Organization Address City/State/[facility] Co de Phone Number [facility] [address] [place] [address] * XR MAMMO ABDULLAHI BILAT SCREEN (03/01/2021 [...] AM CDT XR MAMMO ABDULLAHI BILAT SCREEN [[id number]] CLINICAL HISTORY: ??This is an asymptomatic 70 y.o. patient. INDICATION FOR EXAM: Mammogram Screening. TECHNIQUE: CC & MLO views were obtained. ??This digital study was evaluated with the assistance of Computer-Aided Detection. Breast Tomosynthesis was used in interpretation. COMPARISON FILM: Yes 11/26/19 [employer] ?? FINDINGS: ??The breasts have scattered areas of fibroglandular density. There are no dominant masses, suspicious micro calcifications or areas of architectural distortion. Wendy Patel MD MAMMO * (ABNORMAL) XR DXA BONE DENSITY 2 SITES AXIAL [42037.1] (02/20/2021 1:57 PM CDT) Anatomical Region Laterality [...] DXA Bone Mineral Density (BMD) EXAM LOCATION: [address] [address] PATIENT NAME: Kesha Wilkinson DATE OF : [...] cortes Non-React cortes 02/15/2021 9:53 PM CDT [facility] Comment:Antibodies to HCV no t detected; does not exclude the possibility of exposure to HCV. Blood BLOOD SPECIMEN / Unknown Venipuncture / Unknown 02/15/2021 12:35 PM CDT 02/15/2021 12:37 PM CDT Wendy Patel MD [facility] [address] [place] [address], * COLONOSCOPY (04/30/2019 12:43 PM CDT) 04/30/2019 12:4 3 PM CDT Narrative Transcriptions Natalie Hollis DO - 05/03/2019 6:08 PM CDT Patient Name: Kesha Wilkinson Procedure Date: 04/30/2019 Gender: Female Date of : 1950 Admit Type: Ambulatory Procedure: Colonoscopy Proceduralist: Natalie Hollis MD [facility] Indications/Pre-Op Diagnosis: Chronic diarrhea Medications: [...] 9:31 AM 07/02/2016 11:45 AM Care Teams Cook Camp Relationship Specialty Start Date End Date Trudy Torres NP [address] [place] [address] PCP - General Nurse Practitioner - Family 02/11/22
--- OUTSIDE RECORDS SUMMARY | 2024-03-12 12:56 | XMS_ITS | Clinical Summary ---
Author Name Unknown Organization [facility] Address [address] [place] [address] Care Team Providers Care Rn Documentation Specialist Name Role Phone Elsewhere, Pcp Primary Care Provider Unavailabl e Source Comments Patient records contain information from all sites at [facility]. For routine questions regarding patient records, call [phone] during business hours, M-F 8:00 AM - 5:00 PM Central Time. Record requests for emergency care only can be directed to [phone] at any time.[facility] Allergies Active Allergy Reactions Criticality Noted Date Comments Codeine GI intolerance 02/26/2011 Hydrocodone-Acetaminophen GI intolerance 2010 Medications Medication Sig Dispensed Refills Start Date End Date Status SUPPLY CHAIN VICE PRESIDENT THYROID 30 mg tablet Take 30 mg by mouth 2 (two) times a day. 3 02/15/2019 Active naproxen (NAPROSYN) 375 mg tablet Take 375 mg by mouth. 07/07/2018 Active acetaminophen (TYLENOL) 325 mg tablet 1-2 tablets every 4-6 hours as needed 07/15/2016 Active levothyroxine (SYNTHROID, LEVOTHROID) 88 mcg tablet Take 88 mcg by mouth daily with breakfast. 02/16/2021 Active Active Problems Problem Noted Date [...] week 04/25/2021 How often do you attend confucianism or amish serv ices? Never 04/25/2021 Do you belong to any clubs o r organizations such as confucianism groups, unions, fraternal or athletic groups, or [...] and heating? Not hard at all 04/25/2021 [facility] [place] of Occupat ional Health - Occupational Stress [...] place to sleep or slept in a senior living (including now)? No 04/25/2021 Nutrition Answer Date [...] file Gender Identity Female 09/05/2019 9:33 AM BUSINESS ANALYST MANAGER Sexual Orientation Straight 09/05/2019 9: 33 AM BUSINESS ANALYST MANAGER Last Filed Vital Signs Vital Sign Reading Time Taken Comments Blood Pressure 130/80 03/18/2023 8:21 AM CDT Pulse 62 09/08/2019 9:27 AM BUSINESS ANALYST MANAGER Temperature - - Respiratory Rate 16 [...] 12/05/2023 12/05/2022, 02/11/2022, 02/15/2021, Additional history exists COVID-19 Vaccine (2022-2 4 season) 2023 08/08/2023, 08/06/2022, 02/15/2022, Additional history exists Fasting Glucose for Diabetes Screening 12/05/2025 12/05/2022, 02/11/2022, 02/15/2021, Additional history exists Colonoscopy 07/01/2026 07/01/2016 Colorectal Cancer Screening 07/01/2026 DTaP,Tdap,and Td Vaccines (3 - Td or Tdap) 03/23/2031 03/23/2021, 05/31/2009 Pneumococcal vaccine (65+ years) Completed 08/16/20 19, 08/10/2018 Zoster Vaccines Completed 09/08/2019, 07/06/2019 Influenza Vaccine Completed 08/08/2023, , 08/28/2021, Additional history exists Procedures Procedure Name Priority Date/Time Associated Diagnosis Comments EXTI COMPREHENSIVE METABOLIC PANEL, S/P Routine 12/05/2022 1:56 PM BUSINESS ANALYST MANAGER EXTI THYROID STIMULATING HORMONE Routine 12/05/2022 1:56 PM BUSINESS ANALYST MANAGER from Last 3 Months or Most Recently Relevant to Health Maintenance Advance Directives For more information, please contact: [phone] Documents on File Type Date Recorded Patient Medicare Insurance Specialist Expl anation Advance Directives 03/25/2019 12:50 PM Angie Downs to [facility] Care Teams Rn Documentation Specialist Relationship Specialty Start Date End Date Elsewhere, Pcp PCP - General Internal Medicine 08/02/19
--- OUTSIDE RECORDS SUMMARY | 2024-03-12 12:56 | XMS_ITS ---
Author Name Unknown Organization [facility] Address [address] [place] [address] Care Team Providers Care Assistant Broker Name Role Phone Unavailable Unavailable Unavailable Surgery Details Not on file Complications Check Surgery Details section. Procedure Estimated Blood Loss Check Surgery Details section. Procedure Findings Check Surgery Details section. Procedure Specimens Taken Check Surgery Details section.
--- OUTSIDE RECORDS SUMMARY | 2024-03-12 12:56 | XMS_ITS | Referral Summary ---
Author Name Unknown Organization [facility] Address [address] [place] [address] Care Team Providers Care Tactical Air Control Party Manager Name Role Phone Elsewhere, Pcp Primary Care Provider Unavailabl e Source Comments Patient records contain information from all sites at [facility]. For routine questions regarding patient records, call [phone] during business hours, M-F 8:00 AM - 5:00 PM Central Time. Record requests for emergency care only can be directed to [phone] at any time.[facility] Allergies Active Allergy Reactions Criticality Noted Date Comments Codeine GI intolerance 02/26/2011 Hydrocodone-Acetaminophen GI intolerance 2010 Medications Medication Sig Dispensed Refills Start Date End Date Status ARTIFICIAL LIMB FITTER THYROID 30 mg tablet Take 30 mg [...] week 04/25/2021 How often do you attend sikh or sikhism serv ices? Never 04/25/2021 Do you belong to any clubs o r organizations such as sikh groups, unions, fraternal or athletic groups, or [...] and heating? Not hard at all 04/25/2021 [facility] [place] of Occupat ional Health - Occupational Stress [...] place to sleep or slept in a [place] (including now)? No 04/25/2021 Nutrition Answer Date [...] file Gender Identity Female 09/05/2019 9:33 AM SET UP MECHANIC STAMPING MACHINES Sexual Orientation Straight 09/05/2019 9: 33 AM SET UP MECHANIC STAMPING MACHINES Last Filed Vital Signs Vital Sign Reading Time Taken Comments Blood Pressure 130/80 03/18/2023 8:21 AM CDT Pulse 62 09/08/2019 9:27 AM SET UP MECHANIC STAMPING MACHINES Temperature - - Respiratory Rate 16 07/04/2016 1:03 PM CDT Oxygen Saturation - - Inhaled Oxygen Concentration - - Weight 77.6 kg (170 lb 15.5 oz) 03/18/2023 8:21 AM CDT Height 166 cm (5' 5.35) 07/15/2016 3:26 PM CDT Body Mass Index 28.14 07/15/2016 3:26 PM CDT Plan of Treatment Not on file Procedures Procedure Name Priority Date/Time Associated Diagnosis Comments EXTI COMPREHENSIVE METABOLIC PANEL, S/P Routine 12/05/2022 1:56 PM SET UP MECHANIC STAMPING MACHINES EXTI THYROID STIMULATING HORMONE Routine 12/05/2022 1:56 PM SET UP MECHANIC STAMPING MACHINES from Last 3 Months or Most Recently Relevant to Health Maintenance Advance Directives For more information, please contact: [phone] Documents on File Type Date Recorded Patient Health Coach Expl anation Advance Directives 03/25/2019 12:50 PM Angie Downs to [facility] Care Teams Tactical Air Control Party Manager Relationship Specialty Start Date End Date Elsewhere, Pcp PCP - General Internal Medicine 08/02/19
== END 2024-03-12 12:54 | disposition home or self-care (01) ==
LOC: LAB 12:54
PROVIDERS: PCP Family Medicine; Visit Provider Psychiatry & Neurology Neurology
DX: R20.0 Anesthesia of skin (principal)
CPT/HCPCS: 36415

== ENCOUNTER 2024-05-25 14:39 | Outpatient (CLI) | payer MEDICARE, BC, SELFPAY ==
--- OUTSIDE RECORDS SUMMARY | 2024-05-25 14:43 | XMS_ITS | Clinical Summary ---
Author Organization [facility] Address [place], [place] [address] Care Team Providers Care Fisher Hoop Net Name Role Phone Trudy Torres NP Primary Care Provider [phone] Allergies Active Allergy Reactions Criticality Noted Date [...] Follow-up as needed with Sarahy Bai at 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 22 Diarrhea 01/04/2020 Immunizations Name Administration Dates Next Due COVID-19 vaccine ([employer] NTech 30mcg/0.3mL) 12YO+ NORMA-SUCROSE PF, MDV 02/15/2022 COVID-19 vaccine ([employer] 30mcg/0.3mL) PF, MDV 08/09/2021,01/27/2021,01/06/2021 Influenza, High-dose [...] Sex Assigned at Female 01/03/2021 8:16 AM SLACKLINE OPERATOR Gender Identity Female 01/03/2021 8:16 AM SLACKLINE OPERATOR Sexual Orientation Straight 01/03/2021 8: 16 AM SLACKLINE OPERATOR Obstetrics History Last Filed Vital Signs Vital Sign Reading Time Taken Comments Blood Pressure 115/76 02/07/2023 3:35 PM CDT Pulse 68 02/07/2023 3:35 PM CDT Temperature 36.8 ??C (98.3 ??F) 12/05/2022 1 2:52 PM SLACKLINE OPERATOR Respiratory Rate 18 12/05/2022 12:5 2 PM SLACKLINE OPERATOR Oxygen Saturation 96% 02/07/2023 3:35 PM CDT Inhaled Oxygen Concentration - - Weight 77.5 kg (170 lb 13.7 oz) 02/07/2023 3:35 PM CDT Height 165.4 cm (5' 5.12) 12/05/2022 1 2:52 PM SLACKLINE OPERATOR Body Mass Index 28.33 12/05/2022 12:52 PM SLACKLINE OPERATOR Plan of Treatment Health Maintenance Due Date Last Done Comments Mammogram for age 45-75 03/01/2022 03/01/2021, 11/26 Depression screening for age 12+ 02/18/2023 02/18/2022, 02/15/2021, 11/11/2019, Additional history exists Medicare Wellness for age 65+ 02/19/2023, 02/15/2021, 11/11/2019, Additional history exists COVID-19 vaccine series (2022- season) 2023 08/06/2022, 02/15/2022, 08/09/2021, Additional history [...] - 199 mg/dL 02/11/2022 11:06 AM CDT [facility] TRIGLYCERIDES 86 <150 mg/dL 02/11/2022 11:06 AM CDT [facility] HDL CHOLESTEROL 71 >40 mg/dL 11:06 AM CDT [facility] NON-HDL CHOLESTEROL 158(H) <145 mg/dl 02/11/2022 11:06 AM CDT [facility] CHOL/HDL RATIO 3.23 <4.50 02/11/2022 11:06 AM CDT [facility] LDL CHOLESTEROL 141(H) <=130 mg/dL 02/11/2022 11:06 AM T [facility] VLDL CHOLESTEROL 17 <=30 mg/dL 02/11/2022 11:06 AM T [facility] PROVIDER ORDERED STATUS RANDOM 02/11/2022 11:06 AM CDT [facility] Blood BLOOD SPECIMEN / Unknown Venipuncture / Unknown 02/11/2022 10:14 AM CDT 02/11/2022 10:16 AM CDT Trudy Torres NP CHEMISTRY Performing Organization Address City/State/[facility] Co de Phone Number [facility] [address] [place] [address] * XR MAMMO ABDULLAHI BILAT SCREEN (03/01/2021 [...] AM CDT XR MAMMO ABDULLAHI BILAT SCREEN [[id number]] CLINICAL HISTORY: ??This is an asymptomatic 70 y.o. patient. INDICATION FOR EXAM: Mammogram Screening. TECHNIQUE: CC & MLO views were obtained. ??This digital study was evaluated with the assistance of Computer-Aided Detection. Breast Tomosynthesis was used in interpretation. COMPARISON FILM: Yes 11/26/19 [employer] ?? FINDINGS: ??The breasts have scattered areas of fibroglandular density. There are no dominant masses, suspicious micro calcifications or areas of architectural distortion. Wendy Patel MD MAMMO * (ABNORMAL) XR DXA BONE DENSITY 2 SITES AXIAL [78724.1] (02/20/2021 1:57 PM CDT) Anatomical Region Laterality [...] DXA Bone Mineral Density (BMD) EXAM LOCATION: [address] [address] PATIENT NAME: Kesha Wilkinson DATE OF : [...] cortes Non-React cortes 02/15/2021 9:53 PM CDT [facility] Comment:Antibodies to HCV no t detected; does not exclude the possibility of exposure to HCV. Blood BLOOD SPECIMEN / Unknown Venipuncture / Unknown 02/15/2021 12:35 PM CDT 02/15/2021 12:37 PM CDT Wendy Patel MD SEND OUTS [facility] [address] [place] [address], * COLONOSCOPY (04/30/2019 12:43 PM CDT) 04/30/2019 12:4 3 PM CDT Narrative Transcriptions Natalie Hollis DO - 05/03/2019 6:08 PM CDT Patient Name: Kesha Wilkinson Procedure Date: 04/30/2019 Gender: Female Date of : 1950 Admit Type: Ambulatory Procedure: Colonoscopy Proceduralist: Natalie Hollis MD [facility] One Indications/Pre-Op Diagnosis: Chronic diarrhea Medications: [...] 9:31 AM 07/02/2016 11:45 AM Care Teams Fisher Hoop Net Relationship Specialty Start Date End Date Trudy Torres NP [address] [place] [address] PCP - General Nurse Practitioner - Family 02/11/22
--- OUTSIDE RECORDS SUMMARY | 2024-05-25 14:43 | XMS_ITS | Referral Summary ---
Author Organization [facility] Address [address] [place] [address] Care Team Providers Care District Traffic Chief Name Role Phone Elsewhere, Pcp Primary Care Provider Unavailabl e Source Comments Patient records contain information from all sites at [facility]. For routine questions regarding patient records, call [phone] during business hours, M-F 8:00 AM - 5:00 PM Central Time. 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 Incontinence Urinary Stress Female 04/26/2021 Overview (04/26/2021): Managing stress urinary incontinence effectively with anti incontinence pessary. Pessary Check 04/26/2021 Overview (03/18/2023): Utilizing size 5 ring pessary without support [...] week 04/25/2021 How often do you attend methodist or muslim serv ices? Never 04/25/2021 Do you belong to any clubs o r organizations such as methodist groups, unions, fraternal or athletic groups, or [...] and heating? Not hard at all 04/25/2021 [facility] of Occupat ional Health - Occupational Stress [...] place to sleep or slept in a [facility] (including now)? No 04/25/2021 Nutrition Answer Date Recorded Nutrition: EVOO Fat Source Yes 04/25 On average, how many serving s of fruits and vegetables do you eat per day (serving size is equal to 1 cup or approximately the size of a tennis ball)? 4-5 04/25/2021 Dental Answer Date Recorded Dental: Regular Dentist Unknown 05/04/20 Employment Answer Date Recorded Employment status Working with temporary restric tions 04/25/2021 Education Answer Date Recorded What is the highest level of school you have completed or the highest degree you have received? Associate degree: occupational, technical, or vocational program 09/05/2019 Sex and Gender Information Value Date Recorded Sex Assigned at Not on file Gender Identity Female 09/05/2019 9:33 AM CUSTOMER ACCOUNT TECHNICIAN Sexual Orientation Straight 09/05/2019 9: 33 AM CUSTOMER ACCOUNT TECHNICIAN Last Filed Vital Signs Vital Sign Reading Time Taken Comments Blood Pressure 130/80 03/18/2023 8:21 AM CDT Pulse 62 09/08/2019 9:27 AM CUSTOMER ACCOUNT TECHNICIAN Temperature - - Respiratory Rate 16 07/04/2016 1:03 PM CDT Oxygen Saturation - - Inhaled Oxygen Concentration - - Weight 77.6 kg (170 lb 15.5 oz) 03/18/2023 8:21 AM CDT Height 166 cm (5' 5.35) 07/15/2016 3:26 PM CDT Body Mass Index 28.14 07/15/2016 3:26 PM CDT Plan of Treatment Not on file Procedures Procedure Name Priority Date/Time Associated Diagnosis Comments THYROID-STIMULATING HORMONE-SENSITIVE (S-TSH) Routine 05/10/2016 9:08 AM CDT BASIC METABOLIC PANEL, S/P Routine 11/08/2015 10:01 AM CUSTOMER ACCOUNT TECHNICIAN from Last 3 Months or Most Recently Relevant to Health Maintenance Results * (ABNORMAL) Thyroid-Stimulating Hormone-Sensitive (s-TSH) (05/10/2016 9:08 AM CDT) TSH (Thyrotropin) 4.70(H) 0.27 - 4.20 MIUL POWERCHART Blood 05/10/2016 9:08 AM CDT Sharee Simmons M.D. LAB BLOO D ADD-ON POWERCHART * (ABNORMAL) BMP (Basic Metabolic Panel) (11/08/2015 10:01 AM CUSTOMER ACCOUNT TECHNICIAN) Anion Gap 10 7 - 15 MMOLL POWERCHART BUN (Blood Urea Nitrogen), S 18 6 - 21 MGDL POWERCHART Chloride, S 104 98 - 107 MMOLL POWERCHART CO2 Total 28 22 - 29 MMOLL POWERCHART Creatinine 1.0 0.6 - 1.1 MGDL POWERCHART Glucose 102 70 - 139 MGDL POWERCHART Calcium, Total, S 9.8 8.8 - 10.3 MGDL POWERCHART Sodium, S 141 135 - 145 MMOLL POWERCHART Potassium, S 4.6 3.6 - 5.2 MMOLL POWERCHART HXeGFR (MDRD) 53(L) >=60 [id number] POWERCHART eGFR Black/ >60 >=60 [id number] POWERCHART Blood 11/08/2015 10:0 1 AM CUSTOMER ACCOUNT TECHNICIAN Sharee Simmons M.D. LAB BLOO D ADD-ON POWERCHART from Last 3 Months or Most Recently Relevant to Health Maintenance Advance Directives For more information, please contact: [phone] Documents on File Type Date Recorded Patient Java Swing Developer Expl anation Advance Directives 03/25/2019 12:50 PM Angie tomical Bequest to [facility] Care Teams District Traffic Chief Relationship Specialty Start Date End Date Elsewhere, Pcp PCP - General Internal Medicine 08/02/19
--- OUTSIDE RECORDS SUMMARY | 2024-05-25 14:43 | XMS_ITS | Clinical Summary ---
Author Organization [facility] Address [address] [place] [address] Care Team Providers Care C Developer Name Role Phone Elsewhere, Pcp Primary Care Provider Unavailabl e Source Comments Patient records contain information from all sites at [facility]. For routine questions regarding patient records, call [phone] during business hours, M-F 8:00 AM - 5:00 PM Central Time. Record requests for emergency care only can be directed to [phone] at any time.[facility] Allergies Active Allergy Reactions Criticality Noted Date Comments Codeine GI intolerance 02/26/2011 Hydrocodone-Acetaminophen GI intolerance 2010 Medications Medication Sig Dispensed Refills Start Date End Date Status RESTAURANT HOSTESS THYROID 30 mg tablet Take 30 mg [...] week 04/25/2021 How often do you attend oriental orthodox or hindu serv ices? Never 04/25/2021 Do you belong to any clubs o r organizations such as oriental orthodox groups, unions, fraternal or athletic groups, or [...] and heating? Not hard at all 04/25/2021 [facility] - Occupational Stress [...] place to sleep or slept in a assisted (including now)? No 04/25/2021 Nutrition Answer Date [...] file Gender Identity Female 09/05/2019 9:33 AM TISSUE RECOVERY TECHNICIAN Sexual Orientation Straight 09/05/2019 9: 33 AM TISSUE RECOVERY TECHNICIAN Last Filed Vital Signs Vital Sign Reading Time Taken Comments Blood Pressure 130/80 03/18/2023 8:21 AM CDT Pulse 62 09/08/2019 9:27 AM TISSUE RECOVERY TECHNICIAN Temperature - - Respiratory Rate 16 [...] 02/11/2022, 02/15/2021, Additional history exists COVID-19 Vaccine (2022-12 4 season) 2023 08/08/2023, 08/06/2022, 02/15/2022, Additional history exists Influenza Vaccine (#1) 2024 , 08/02/2022, 08/28/2021, Additional history exists Fasting Glucose for Diabetes Screening 12/05/2025 12/05/2022, 02/11/2022, 02/15/2021, Additional history exists Colonoscopy 07/01/2026 07/01/2016 Colorectal Cancer Screening 07/01/2026 DTaP,Tdap,and Td Vaccines (3 - Td or Tdap) 03/23/2031 03/23/2021, 05/31/2009 Pneumococcal vaccine (65+ years) Completed 08/16/20 19, 08/10/2018 Zoster Vaccines Completed 09/08/2019, 07/06/2019 Procedures Procedure Name Priority Date/Time Associated Diagnosis Comments THYROID-STIMULATING HORMONE-SENSITIVE (S-TSH) Routine 05/10/2016 9:08 AM CDT BASIC METABOLIC PANEL, S/P Routine 11/08/2015 10:01 AM TISSUE RECOVERY TECHNICIAN from Last 3 Months or Most Recently Relevant to Health Maintenance Results * (ABNORMAL) Thyroid-Stimulating Hormone-Sensitive (s-TSH) (05/10/2016 9:08 AM CDT) TSH (Thyrotropin) 4.70(H) 0.27 - 4.20 MIUL POWERCHART Blood 05/10/2016 9:08 AM CDT Sharee Simmons M.D. LAB BLOO D ADD-ON POWERCHART * (ABNORMAL) BMP (Basic Metabolic Panel) (11/08/2015 10:01 AM TISSUE RECOVERY TECHNICIAN) Anion Gap 10 7 - 15 [...] 5.2 MMOLL POWERCHART HXeGFR (MDRD) 53(L) >=60 [id number] POWERCHART eGFR Black/ >60 >=60 [id number] POWERCHART Blood 11/08/2015 10:0 1 AM TISSUE RECOVERY TECHNICIAN Sharee Simmons M.D. LAB BLOO D ADD-ON POWERCHART from Last 3 Months or Most Recently Relevant to Health Maintenance Advance Directives For more information, please contact: [phone] Documents on File Type Date Recorded Patient Reconciling Clerk Expl anation Advance Directives 03/25/2019 12:50 PM Angie kay Bequest to [facility] Care Teams C Developer Relationship Specialty Start Date End Date Elsewhere, Pcp PCP - General Internal Medicine 08/02/19
--- OUTSIDE RECORDS SUMMARY | 2024-05-25 14:43 | XMS_ITS ---
Author Organization [facility] Address [address] [place] [address] Care Team Providers Care Operator Electronic Warfare Name Role Phone Unavailable Unavailable Unavailable Surgery Details Not on file Complications Check Surgery Details section. Procedure Estimated Blood Loss Check Surgery Details section. Procedure Findings Check Surgery Details section. Procedure Specimens Taken Check Surgery Details section.
--- OUTSIDE RECORDS SUMMARY | 2024-05-25 14:43 | XMS_ITS | Data Portability ---
Author Organization [place] [facility] [employer] Address [address] [address] Care Team Providers Care Corporate Treasury Analyst Name Role Phone WESLEY KAUFMAN Primary Care [...] available Not available 11/19/2023 [id number] RxNorm Zahida Pamj [facility] 11:08:58 Medications [...] Updated DateTime 11/19/2023 165.1 cm 25.8 kg/m2 01738.82 g Zahida Jazmyn [facility] 11/19/2023 11:09:50 Social History None recorded. Functional Status None recorded. Mental Status None recorded. Family History Nothing Reported. Medical History No medical history recorded. Gynecological HistoryNo gynecological history recorded. Obstetrics History GPAL:G 0 P 0 0 0 0 Past Encounters Encounter ID Performer Location Encounter Start Date Encounter Closed Date Diagnosis/Indication Diagnosis SNOMED-CT Code [id number] Jovi William DPM [employer] Office [address] [place] [id number] 11/19/2023 11:13:59 11/19/2023 15:49:18 Acquired hallux limitus of left great toe 22092268419208 09 Acquired h allux limitus of right great toe [id number] 00 [id number] Jovi William DPM [employer] Office [address] [place] [phone] 12/03/2023 11:45:33 12/04/2023 10:52:20 Acquired hallux limitus of left great toe 00400521761025 09 Acquired h allux limitus of right great toe 92926363673581 00 Health Concerns Section Related Observation LastModified by Organization Detai ls LastModified Time None Recorded Concern Status LastModified by Organization Details LastModified Time None Recorded Advance Directives Directive None Recorded Payers Encounter Date Sequence Insurance Name Policy Number Policy Villasenor Covered Member ID Villasenor Member ID Guarantor Name 11/19/2023 2 [place] [id number] Kesha Wilkinson [id number] Kesha Wilkinson 12/03/2023 1 [place]) [id number] Kesha Wilkinson [id number] Kesha Wilkinson Notes Date Note Type Note [...] today for further cares. Jovi William DPM [address] [place] [address], [phone], [facility] 11/19/2023 13:02:13 12/03/2023 text/html HPI Notes: Esme flores is a 73 year old female who presents today for a Subiomed trial. The patient was previously seen on 11/19/2023 at which time the patient was informed of her diagnosis as severe hallux rigidus and she was informed of both conservative and surgical cares. Jovi William DPM [address] [place] [address], [phone], [facility] 12/03/2023 13:15:01 OBGyn Episode No OBEpisode recorded.
--- NOTE | 2024-05-25 15:00 | CRLHL7_ITS ---
For Patients: As a result of the Century Cures Act, medical imaging exams and procedure reports are released immediately into your electronic medical record. You may view this report before your referring provider. If you have questions, please contact your health care provider. INDICATION: Thyroid nodule COMPARISON: none TECHNIQUE: Koenig scale and color Doppler images were acquired of the thyroid gland. FINDINGS: The thyroid gland demonstrates mildly heterogeneous echogenicity and has a smooth outer contour. The right lobe measures 2.9 x 0.9 x 1.6 cm and the left lobe measures 3.8 x 0.8 x 1.2 cm in size. The isthmus measures 2.8 millimeters. Solid hypoechoic nodule left thyroid lobe measures 13 x 8 x 13 millimeters, TR 4. Solid nodule with coarse calcifications left thyroid lobe measures 9 x 6 x 9 millimeters, TR 4. The color Doppler images demonstrate increased vascularity. There is no evidence of cervical lymphadenopathy or parathyroid mass. IMPRESSION: There are 2 TR 4 nodules left thyroid lobe. One year follow-up recommended. FNA not indicated at this time. Heterogeneous thyroid with increased vascularity. Dictated by Denis Villeda MD @ 05/27/2024 8:52:27 AM (Electronically Signed)
== END 2024-05-25 14:40 | disposition home or self-care (01) ==
LOC: US 14:41
PROVIDERS: PCP Family Medicine; Visit Provider Family Medicine
DX: E04.1 Nontoxic single thyroid nodule (principal)
CPT/HCPCS: 76536

== ENCOUNTER 2024-08-16 07:35 | Outpatient (CLI) | payer MEDICARE, BC, SELFPAY ==
--- OUTSIDE RECORDS SUMMARY | 2024-08-16 07:37 | XMS_ITS | Encounter Summary ---
Author Organization [facility] Address [address] [place] [address] Care Team Providers Care Interior Paneler Name Role Phone Grace Villanueva MD Primary Care Provider + Encounter Details Date Type Department Care Team (Latest Contact Info) Description 06/25/2024 Travel Social History Tobacco Use Types Packs/Day Years Used Date Smoking Tobacco: Never Assessed Sex and Gender Information Value Date Recorded Sex Assigned at Not on file Gender Identity Not on file Sexual Orientation Not on file documented as of this encounter Plan of Treatment Not on file documented as of this encounter Visit Diagnoses Not on filedocumented in this encounter Care Teams Interior Paneler Relationship Specialty Start Date End Date Grace Villanueva MD [facility] & [address] [address] PCP - General 06/25/24 documented as of this encounter
--- OUTSIDE RECORDS SUMMARY | 2024-08-16 07:37 | XMS_ITS | Clinical Summary ---
Author Organization [facility] Address [address] [place] [address] Care Team Providers Care Area Field Manager Name Role Phone Grace Villanueva MD Primary Care Provider + Encounters Date Type Department Care Team Description 06/29/2024 1:31 PM CDT - 06/29/2024 11:59 PM CDT Hospital Encounter [facility] [address] [facility] [place] [phone] Kesha Szymanski MD Osteoporosis Discharge Disposition: Home or Self Care 06/29/2024 Travel 06/25/2024 Travel from Last 3 Months Social History Tobacco Use Types Packs/Day Years Used Date Smoking Tobacco: Never Assessed Sex and Gender Information Value Date Recorded Sex Assigned at Not on file Gender Identity Not on file Sexual Orientation Not on file Plan of Treatment Health Maintenance Due Date Last Done Comments ADVANCE CARE PLANNING 1950 ANNUAL REVIEW OF HM ORDERS 1950 CT COLONOGRAPHY 1950 DEXA 1950 FIT 1950 FLEX SIG 1950 GLUCOSE 1950 sDNA (Cologuard) 1950 HEPATITIS C SCREENING 1968 LIPID 1990 FALL RISK ASSESSMENT 2015 MEDICARE ANNUAL WELLNESS VISIT 02/18/2023 02/18/2022, 02/15/2021 MAMMO SCREENING 03/01/2023 03/01/2021, 03/01/2021 PHQ-2 (once per calendar year) 2023 COVID-19 Vaccine ( season) 2024 08/08/2023, 08/06/2022, 02/15/2022, Additional history exists INFLUENZA VACCINE (#1) 2024 , 08/02/2022, 08/28/2021, Additional history exists RSV VACCINE (1 - 1-dose 75+ series) 2025 COLONOSCOPY 04/30/2029 04/30/2019 COLORECTAL CANCER SCREENING 04/30/2029 DTAP/TDAP/TD IMMUNIZATION (3 - Td or Tdap) 03/23/2031 03/23/2021, 05/31/2009 Pneumococcal Vaccine: 65+ Years Completed 08/16/2019, 08/10/2018 ZOSTER IMMUNIZATION Completed 09/08/2019, 9 HPV IMMUNIZATION Aged Out No longer e ligible based on patient's age to complete this topic MENINGITIS IMMUNIZATION Aged Out No l onger eligible based on patient's age to complete this topic RSV MONOCLONAL ANTIBODY Aged Out No l onger eligible based on patient's age to complete this topic Procedures Procedure Name Priority Date/Time Associated Diagnosis Comments US THYROID Routine 06/29/2024 2:31 PM CDT Osteoporosis from Last 3 Months Results * US Thyroid (06/29/2024 2:31 PM CDT) Anatomical Region Laterality Modality Head Ultrasound Impressions 06/29/2024 3:34 PM CDT IMPRESSION: 1. ??Left thyroid nodules. Left inferior nodule is slightly below size threshold for ultrasound-guided FNA per TI-RADS criteria. Patient offered early biopsy now versus follow-up ultrasound in one year. Patient prefers continued surveillance at this time. 2. 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 Nodules are characterized per ACR Thyroid Imaging, Reporting and Data System (TI-RADS): White Paper of the ACR TI-RADS Committee Abdoulaye Shukla et al. Journal of the [place] [employer] 2017. Volume 14 (2017), Issue 5, 031-269. SUNITHA LAMB MD Narrative 06/29/2024 3:34 PM CDT US THYROID 06/29/2024 2:31 PM CLINICAL HISTORY: Thyroid nodule. TECHNIQUE: Thyroid ultrasound. COMPARISON: Outside thyroid ultrasound 05/25/2024. FINDINGS: RIGHT lobe: 3.8 x 0.9 x 1.3 cm. Heterogenous echotexture. Isthmus: 3 mm. LEFT lobe: 3.9 x 1.0 x 1.2 cm. Heterogenous echotexture. NODULES: Nodule 1: Left mid nodule measuring 0.8 x 0.8 x 0.6 cm, previously 0.9 x 0.9 x 0.6 cm. Composition: Solid or almost completely solid, 2 points Echogenicity: Hyperechoic or isoechoic, 1 point Shape: Not taller than wide, 0 points Margin: Ill-defined, 0 points Echogenic Foci: Macrocalcifications, 1 point Point Total: 4-6 points. TI-RADS 4. If 1.5 cm or larger, recommend FNA; if 1 cm or larger, follow up US (annually for 5 years). ?? Nodule 2: Left inferior nodule measuring 1.4 x 0.9 x 0.9 cm, previously 1.3 x 0.8 x 1.3 cm. Composition: Solid or almost completely solid, 2 points Echogenicity: Hypoechoic, 2 points Shape: Not taller than wide, 0 points Margin: Ill-defined, 0 points Echogenic Foci: None, or large comet-tail artifacts, 0 points Point Total: 4-6 points. TI-RADS 4. If 1.5 cm or larger, recommend FNA; if 1 cm or larger, follow up US (annually for 5 years). Procedure Note Sunitha Lamb MD - 06/29/2024 US THYROID 06/29/2024 2:31 PM CLINICAL HISTORY: Thyroid nodule. TECHNIQUE: Thyroid ultrasound. COMPARISON: Outside thyroid ultrasound 05/25/2024. FINDINGS: RIGHT lobe: 3.8 x 0.9 x 1.3 cm. Heterogenous echotexture. Isthmus: 3 mm. LEFT lobe: 3.9 x 1.0 x 1.2 cm. Heterogenous echotexture. NODULES: Nodule 1: Left mid nodule measuring 0.8 x 0.8 x 0.6 cm, previously 0.9 x 0.9 x 0.6 cm. Composition: Solid or almost completely solid, 2 points Echogenicity: Hyperechoic or isoechoic, 1 point Shape: Not taller than wide, 0 points Margin: Ill-defined, 0 points Echogenic Foci: Macrocalcifications, 1 point Point Total: 4-6 points. TI-RADS 4. If 1.5 cm or larger, recommend FNA; if 1 cm or larger, follow up US (annually for 5 years). Nodule 2: Left inferior nodule measuring 1.4 x 0.9 x 0.9 cm, previously 1.3 x 0.8 x 1.3 cm. Composition: Solid or almost completely solid, 2 points Echogenicity: Hypoechoic, 2 points Shape: Not taller than wide, 0 points Margin: Ill-defined, 0 points Echogenic Foci: None, or large comet-tail artifacts, 0 points Point Total: 4-6 points. TI-RADS 4. If 1.5 cm or larger, recommend FNA; if 1 cm or larger, follow up US (annually for 5 years). IMPRESSION: 1. Left thyroid nodules. Left inferior nodule is slightly below size threshold for ultrasound-guided FNA per TI-RADS criteria. Patient offered early biopsy now versus follow-up ultrasound in one year. Patient prefers continued surveillance at this time. 2. 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 Nodules are characterized per ACR Thyroid Imaging, Reporting and Data System (TI-RADS): White Paper of the ACR TI-RADS Committee Abdoulaye Shukla et al. Journal of the [place] [employer] 2017. Volume 14 (2017), Issue 5, 587-831. SUNITHA LAMB MD Kesha Szymanski MD [facility] US ORDER CONSTANCE from Last 3 Months Care Teams Area Field Manager Relationship Specialty Start Date End Date Grace Villanueva MD [facility] [address] [place] [address] PCP - General 06/25/24
--- OUTSIDE RECORDS SUMMARY | 2024-08-16 07:37 | XMS_ITS | Data Portability ---
Author Organization [place] [facility] [employer] Address [address] [address] Care Team Providers Care Vessel Crew Member Name Role Phone WESLEY KAUFMAN Primary Care [...] Not available 11/19/2023 [id number] RxNorm Zahida Pamj [facility] 11:08:58 [...] Updated DateTime 11/19/2023 165.1 cm 25.8 kg/m2 50724.82 g Zahida Jazmyn [facility] 11/19/2023 11:09:50 Social History None recorded. Functional Status None recorded. Mental Status None recorded. Family History Nothing Reported. Medical History No medical history recorded. Gynecological HistoryNo gynecological history recorded. Obstetrics History GPAL:G 0 P 0 0 0 0 Past Encounters Encounter ID Performer Location Encounter Start Date Encounter Closed Date Diagnosis/Indication Diagnosis SNOMED-CT Code Diagnosis ICD10 Code [id number] Jovi William DPM [facility] [address] [place] [phone] 11/19/2023 11:13:59 11/19/2023 15:49:18 Acquired hallux limitus of left great toe [id number] 938937 M20.5X2 Acquired h allux limitus of right great toe [id number] 264954 M20.5X1 [id number] Jovi William DPM [facility] [address] [place] [phone] 12/03/2023 11:45:33 12/04/2023 10:52:20 Acquired hallux limitus of left great toe [id number] 642015 M20.5X2 Acquired h allux limitus of right great toe 7018856785 242353 M20.5X1 Health Concerns Section Related Observation LastModified by Organization Detai ls LastModified Time None Recorded Concern Status LastModified by Organization Details LastModified Time None Recorded Advance Directives Directive None Recorded Payers Encounter Date Sequence Insurance Name Policy Number Policy Villasenor Covered Member ID Villasenor Member ID Guarantor Name 11/19/2023 2 [place] [id number] Kesha Wilkinson [id number] Kesha Wilkinosn 12/03/2023 1 [place] ([place]) [id number] Kesha Wilkinson [id number] Kesha Wilkinson Notes Date Note Type Note [...] today for further cares. Jovi William DPM [address] [place] [address], [phone], [facility] 11/19/2023 13:02:13 12/03/2023 text/html HPI Notes: Esme flores is a 73 year old female who presents today for a Subiomed trial. The patient was previously seen on 11/19/2023 at which time the patient was informed of her diagnosis as severe hallux rigidus and she was informed of both conservative and surgical cares. Jovi William DPM [address] [place], [address], [facility] 12/03/2023 13:15:01 OBGyn Episode No OBEpisode recorded.
--- OUTSIDE RECORDS SUMMARY | 2024-08-16 07:37 | XMS_ITS | Clinical Summary ---
Author Organization [facility] Address [place], [place] [address] Care Team Providers Care Air Hammer Stripper Name Role Phone Trudy Torres NP Primary Care Provider [phone] Allergies Active Allergy Reactions Criticality Noted Date [...] Hyperlipidemia 02/18/2022 Stress incontinence in female 04/26/2021 Overview (02/11/2022): Managing stress urinary incontinence effectively with anti incontinence pessary. Female cystocele 04/26/2021 Overview (02/11/2022): Managing symptomatic cystocele effectively with pessary. Encounter for pessary maintenance 04/26/2021 Overview (02/11/2022): Utilizing size 3 ring pessary with support with knob, or size 4 ring pessary without support with knob for management of her stress urinary incontinence. Managing independently. No concerns. 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 Resolved Problems Problem Noted Date Diagnosed Date Resolved Date Cassandra's disease 02/12/20 22 Diarrhea 01/04/2020 Immunizations Name Administration Dates Next Due COVID-19 vaccine ([employer] NTech 30mcg/0.3mL) 12YO+ NORMA-SUCROSE PF, MDV 02/15/2022 COVID-19 vaccine ([employer] NTech 30mcg/0.3mL) PF, MDV 08/09/2021,01/27/2021,01/06/2021 Influenza, High-dose [...] Sex Assigned at Female 01/03/2021 8:16 AM COUNTER STITCHER Gender Identity Female 01/03/2021 8:16 AM COUNTER STITCHER Sexual Orientation Straight 01/03/2021 8: 16 AM COUNTER STITCHER Obstetrics History Last Filed Vital Signs Vital Sign Reading Time Taken Comments Blood Pressure 115/76 02/07/2023 3:35 PM CDT Pulse 68 02/07/2023 3:35 PM CDT Temperature 36.8 ??C (98.3 ??F) 12/05/2022 1 2:52 PM COUNTER STITCHER Respiratory Rate 18 12/05/2022 12:5 2 PM COUNTER STITCHER Oxygen Saturation 96% 02/07/2023 3:35 PM CDT Inhaled Oxygen Concentration - - Weight 77.5 kg (170 lb 13.7 oz) 02/07/2023 3:35 PM CDT Height 165.4 cm (5' 5.12) 12/05/2022 1 2:52 PM COUNTER STITCHER Body Mass Index 28.33 12/05/2022 12:52 PM COUNTER STITCHER Plan of Treatment Health Maintenance Due Date Last Done Comments Mammogram for age 45-75 03/01/2022 03/01/2021, 11/26 Depression screening for age 12+ 02/18/2023 02/18/2022, 02/15/2021, 11/11/2019, Additional history exists Medicare Wellness for age 65+ 02/19/2023, 02/15/2021, 11/11/2019, Additional history exists BMI (ht and wt on same day) for age 18+ 12/05/2023 12/05/2022, 02/11/2022, 02/15/2021, Additional history exists Colonoscopy through age 75 04/30/2024 04/30/2019, COVID-19 vaccine series (2023- season) 2024 08/06/2022, 02/15/2022, 08/09/2021, Additional history exists Influenza for age 65+ 07/04/2024 08/02/2022 , [...] REFLEX MEASURED LDL (02/11/2022 10:14 AM CDT) [facility] CHOLESTEROL,TOTAL 229(H) 100 - 199 mg/dL 02/11/2022 11:06 AM CDT [facility] TRIGLYCERIDES 86 <150 mg/dL 02/11/2022 11:06 AM CDT [facility] HDL CHOLESTEROL 71 >40 mg/dL 11:06 AM CDT [facility] NON-HDL CHOLESTEROL 158(H) <145 mg/dl 02/11/2022 11:06 AM T [facility] CHOL/HDL RATIO 3.23 <4.50 02/11/2022 11:06 AM CDT [facility] LDL CHOLESTEROL 141(H) <=130 mg/dL 02/11/2022 11:06 AM T [facility] VLDL CHOLESTEROL 17 <=30 mg/dL 02/11/2022 11:06 AM T [facility] PROVIDER ORDERED STATUS RANDOM 02/11/2022 11:06 AM T [facility] Blood BLOOD SPECIMEN / Unknown Venipuncture / Unknown 02/11/2022 10:14 AM CDT 02/11/2022 10:16 AM CDT Trudy Torres NP CHEMISTRY Performing Organization Address City/State/[facility] Co de Phone Number [facility] [address] [place] [address] * XR MAMMO ABDULLAHI BILAT SCREEN (03/01/2021 [...] AM CDT XR MAMMO ABDULLAHI BILAT SCREEN [[id number]] CLINICAL HISTORY: ??This is an asymptomatic 70 y.o. patient. INDICATION FOR EXAM: Mammogram Screening. TECHNIQUE: CC & MLO views were obtained. ??This digital study was evaluated with the assistance of Computer-Aided Detection. Breast Tomosynthesis was used in interpretation. COMPARISON FILM: Yes 11/26/19 [facility] ?? FINDINGS: ??The breasts have scattered areas of fibroglandular density. There are no dominant masses, suspicious micro calcifications or areas of architectural distortion. Wendy Patel MD MAMMO * (ABNORMAL) XR DXA BONE DENSITY 2 SITES AXIAL [33145.1] (02/20/2021 1:57 PM CDT) Anatomical Region Laterality [...] DXA Bone Mineral Density (BMD) EXAM LOCATION: [address] [phone] PATIENT NAME: Kesha Wilkinson DATE OF : [...] cortes Non-React cortes 02/15/2021 9:53 PM CDT [facility] [address] [facility] Comment:Antibodies to HCV no t detected; does not exclude the possibility of exposure to HCV. Blood BLOOD SPECIMEN / Unknown Venipuncture / Unknown 02/15/2021 12:35 PM CDT 02/15/2021 12:37 PM CDT Wendy Patel MD [facility] [address] [place] [address], * COLONOSCOPY (04/30/2019 12:43 PM CDT) 04/30/2019 12:4 3 PM CDT Narrative Transcriptions Natalie Hollis, - 05/03/2019 6:08 PM CDT Patient Name: Kesha Wilkinson Procedure Date: 04/30/2019 Gender: Female Date of : 1950 Admit Type: Ambulatory Procedure: Colonoscopy Proceduralist: Natalie Hollis MD [facility] Indications/Pre-Op Diagnosis: Chronic diarrhea Medications: Propofol [...] 9:31 AM 07/02/2016 11:45 AM Care Teams Air Hammer Stripper Relationship Specialty Start Date End Date Trudy Torres NP [address] [facility] [place] [address] PCP - General Nurse Practitioner - Family 02/11/22
--- OUTSIDE RECORDS SUMMARY | 2024-08-16 07:37 | XMS_ITS | Encounter Summary ---
Author Organization [facility] Address [facility]ly [facility] [facility] [address] Care Team Providers Care Tile And Marble Setter Name Role Phone Grace Villanueva MD Primary Care Provider + Reason for Visit * Diagnostic Imaging Ultrasound (Routine) - Pending Review Specialty Diagnoses / Procedures Referred By Laverne t Referred To Contact Radiology. Diagnoses Osteoporosis Procedures US Thyroid US Biopsy Thyroid Fine Needle Aspiration Kesha Szymanski MD [facility] OF [address] [place] [address] Referral ID Status Reason Start Date Expiration Date V isits Requested Visits Authorized [id number] Pending Review 06/09/2024 06/09/2025 1 1 Encounter Details Date Type Department Care Team (Late st Contact Info) Description 06/29/2024 1:31 PM CDT - 06/29/2024 11:59 PM CDT Hospital Encounter [facility] [address] [place] [phone] Kesha Szymanski MD [facility] OF [address] [place] [id number] Osteoporosis Discharge Disposition: Home or Self Care Social History Tobacco Use Types Packs/Day Years Used Date Smoking Tobacco: Never Assessed Sex and Gender Information Value Date Recorded Sex Assigned at Not on file Gender Identity Not on file Sexual Orientation Not on file documented as of this encounter Plan of Treatment Not on file documented as of this encounter Procedures Procedure Name Priority Date/Time Associated Diagnosis Comments US THYROID Routine 06/29/2024 2:31 PM CDT Osteoporosis documented in this encounter Results * US Thyroid (06/29/2024 2:31 PM [...] Abdoulaye Shukla et al. Journal of the [employer] 2017. Volume 14 (2017), Issue 5, [id number]. SUNITHA LAMB MD Narrative 06/29/2024 3:34 PM [...] Paper of the ACR TI-RADS Committee Abdoulaye Shukla. et al. Journal of the [employer] 2017. Volume 14 (2017), Issue 5, 147-381. SUNITHA LAMB MD Kesha Szymanski MD IMG US ORDER CONSTANCE documented in this encounter Visit Diagnoses Diagnosis Osteoporosis Osteoporosis, unspecified documented in this encounter Care Teams Tile And Marble Setter Relationship Specialty Start Date End Date Grace Villanueva MD [facility] & [address] [address] PCP - General 06/25/24 documented as of this encounter
--- OUTSIDE RECORDS SUMMARY | 2024-08-16 07:37 | XMS_ITS | Encounter Summary ---
Author Organization [place] Address [address] [place] [id number] Care Team Providers Care Divinity Professor Name Role Phone Grace Villanueva MD Primary Care Provider + Encounter Details Date Type Department Care Team (Latest Contact Info) Description 06/29/2024 Travel Social History Tobacco Use Types Packs/Day Years Used Date Smoking Tobacco: Never Assessed Sex and Gender Information Value Date Recorded Sex Assigned at Not on file Gender Identity Not on file Sexual Orientation Not on file documented as of this encounter Plan of Treatment Not on file documented as of this encounter Visit Diagnoses Not on filedocumented in this encounter Care Teams Divinity Professor Relationship Specialty Start Date End Date Grace Villanueva MD [facility] & [address] [address] PCP - General 06/25/24 documented as of this encounter
--- OUTSIDE RECORDS SUMMARY | 2024-08-16 07:37 | XMS_ITS | Referral Summary ---
Author Organization [place] Address [address] [place] [address] Care Team Providers Care Rn Navigator Name Role Phone Grace Villanueva MD Primary Care Provider + Encounters Date Type Department Care Team Description 06/29/2024 Travel 06/29/2024 1:31 PM CDT - 06/29/2024 11:59 PM CDT Hospital Encounter [facility] [address] [place] [phone] Kesha Szymanski MD Osteoporosis Discharge Disposition: Home or Self Care 06/25/2024 Travel from Last 3 Months Social History Tobacco Use Types Packs/Day Years Used Date Smoking Tobacco: Never Assessed Sex and Gender Information Value Date Recorded Sex Assigned at Not on file Gender Identity Not on file Sexual Orientation Not on file Plan of Treatment Not on file Procedures [...] Abdoulaye Shukla et al. Journal of the [employer] 2017. Volume 14 (2017), Issue 5, [id number]. SUNITHA LAMB MD Narrative 06/29/2024 3:34 PM [...] Abdoulaye Shukla et al. Journal of the [employer] 2017. Volume 14 (2017), Issue 5, [phone]. SUNITHA LAMB MD Kesha Szymanski MD G US ORDER CONSTANCE from Last 3 Months Care Teams Rn Navigator Relationship Specialty Start Date End Date Grace Villanueva MD [facility] & [address] [phone] PCP - General 06/25/24
--- OUTSIDE RECORDS SUMMARY | 2024-08-16 07:38 | XMS_ITS | Clinical Summary ---
Author Organization [facility] Address [address] [place] [address] Care Team Providers Care Business Services Sales Agent Name Role Phone Elsewhere, Pcp Primary Care Provider Unavailabl e Source Comments Patient records contain information from all sites at [facility]. For routine questions regarding patient records, call [phone] during business hours, M-F 8:00 AM - 5:00 PM Central Time. Record requests for emergency care only can be directed to [phone] at any time.[facility] Allergies Active Allergy Reactions Criticality Noted Date Comments Codeine GI intolerance 02/26/2011 Hydrocodone-Acetaminophen GI intolerance 2010 Medications MARINE EQUIPMENT SALES ENGINEER THYROID 30 mg tablet Take 30 mg [...] week 04/25/2021 How often do you attend nondenominational or taoist serv ices? Never 04/25/2021 Do you belong to any clubs o r organizations such as nondenominational groups, unions, fraternal or athletic groups, or [...] and heating? Not hard at all 04/25/2021 [facility] - Occupational Stress Questionnaire Answer Date Recorded [...] place to sleep or slept in a half-way (including now)? No 04/25/2021 Nutrition Answer Date [...] degree: occupational, technical, or vocational program 09/05/2019 Comments No Sex and Gender Information Value Date Recorded Sex Assigned at Not on file Legal Sex Female 5:55 PM STORE LEAD Gender Identity Female 09/05/2019 9:33 AM STORE LEAD Sexual Orientation Straight 09/05/2019 9: 33 AM STORE LEAD Last Filed Vital Signs Vital Sign Reading Time Taken Comments Blood Pressure 130/80 03/18/2023 8:21 AM CDT Pulse 62 09/08/2019 9:27 AM STORE LEAD Temperature - - Respiratory Rate 16 07/04/2016 [...] 02/11/2022, 02/15/2021, Additional history exists COVID-19 Vaccine (2023-2 5 season) 2024 08/08/2023, 08/06/2022, 02/15/2022, Additional history exists Influenza [...] METABOLIC PANEL, S/P Routine 11/08/2015 10:01 AM STORE LEAD from Last 3 Months or Most Recently Relevant to Health Maintenance Results * (ABNORMAL) Thyroid-Stimulating Hormone-Sensitive (s-TSH) (05/10/2016 9:08 AM CDT) TSH (Thyrotropin) 4.70(H) 0.27 - 4.20 MIUL POWERCHART Blood 05/10/2016 9:08 AM CDT Sharee Simmons M.D. LAB BLOOD ADD-ON Final Result POWERCHART * (ABNORMAL) BMP (Basic Metabolic Panel) (11/08/2015 10:01 AM STORE LEAD) Anion Gap 10 7 - 15 MMOLL [...] 5.2 MMOLL POWERCHART HXeGFR (MDRD) 53(L) >=60 [id number] POWERCHART eGFR Black/ >60 >=60 [id number] POWERCHART Blood 11/08/2015 10:0 1 AM STORE LEAD Sharee Simmons M.D. LAB BLOOD ADD-ON Edited Result - Final POWERCHART from Last 3 Months or Most Recently Relevant to Health Maintenance Insurance MEDICARE [facility] [place] [address] Advance Directives For more information, please contact: [phone] Documents on File Type Date Recorded Patient Ball Shagger Expl anation Advance Directives 03/25/2019 12:50 PM Angie Downs to [facility] Care Teams Business Services Sales Agent Relationship Specialty Start Date End Date Elsewhere, Pcp PCP - General Internal Medicine 08/02/19
--- OUTSIDE RECORDS SUMMARY | 2024-08-16 07:38 | XMS_ITS ---
Author Organization [facility] Address [address] [place] [address] Care Team Providers Care Student Activities Director Name Role Phone Unavailable Unavailable Unavailable Surgery Details Not on file Complications Check Surgery Details section. Procedure Estimated Blood Loss Check Surgery Details section. Procedure Findings Check Surgery Details section. Procedure Specimens Taken Check Surgery Details section.
--- OUTSIDE RECORDS SUMMARY | 2024-08-16 07:38 | XMS_ITS | Referral Summary ---
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 For routine questions regarding patient records, call [phone] during business hours, M-F 8:00 AM - 5:00 PM Central Time. 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 Never 04/25/2021 Do you belong to any clubs o r organizations such as gnosticism groups, unions, fraternal or athletic groups, or [...] and heating? Not hard at all 04/25/2021 [facility] - Occupational Stress Questionnaire Answer Date Recorded [...] place to sleep or slept in a snf (including now)? 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 Gender Identity Female 09/05/2019 9:33 AM BUTTER LIQUEFIER Sexual Orientation Straight 09/05/2019 9: 33 AM BUTTER LIQUEFIER Last Filed Vital Signs Vital Sign Reading Time Taken Comments Blood Pressure 130/80 03/18/2023 8:21 AM CDT Pulse 62 09/08/2019 9:27 AM BUTTER LIQUEFIER Temperature - - Respiratory Rate 16 07/04/2016 [...] METABOLIC PANEL, S/P Routine 11/08/2015 10:01 AM BUTTER LIQUEFIER from Last 3 Months or Most Recently Relevant to Health Maintenance Results * (ABNORMAL) Thyroid-Stimulating Hormone-Sensitive (s-TSH) (05/10/2016 9:08 AM CDT) TSH (Thyrotropin) 4.70(H) 0.27 - 4.20 MIUL POWERCHART Blood 05/10/2016 9:08 AM CDT Sharee Simmons M.D. LAB BLOOD ADD-ON Final Result POWERCHART * (ABNORMAL) BMP (Basic Metabolic Panel) (11/08/2015 10:01 AM BUTTER LIQUEFIER) Anion Gap 10 7 - 15 MMOLL [...] 5.2 MMOLL POWERCHART HXeGFR (MDRD) 53(L) >=60 [id number] POWERCHART eGFR Black/ >60 >=60 [id number] POWERCHART Blood 11/08/2015 10:0 1 AM BUTTER LIQUEFIER Sharee Simmons M.D. LAB BLOOD ADD-ON Edited Result - Final POWERCHART from Last 3 Months or Most Recently Relevant to Health Maintenance Insurance [facility]ICARE [facility] Advance Directives For more information, please contact: [phone] Documents on File Type Date Recorded Patient Configuration Specialist Expl anation Advance Directives 03/25/2019 12:50 PM Angie Downs to [facility] Care Teams Mechanical Cad Designer Relationship Specialty Start Date End Date Elsewhere, Pcp PCP - General Internal Medicine 08/02/19
--- NOTE | 2024-08-16 08:56 | W.ANESCHARGE ---
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
--- NOTE | 2024-08-16 09:25 | W.ANESCHARGE ---
Anesthesia Charges Start Date/Time Anesthesia Start Date: 08/16/24 Anesthesia Start Time: 08:26 Stop Date/Time Anesthesia Stop Date: 08/16/24 Anesthesia Stop Time: 08:53
--- NOTE | 2024-08-16 09:26 | W.ANESCHARGE ---
Anesthesia Charges Start Date/Time Anesthesia Start Date: 08/16/24 Anesthesia Start Time: 08:26 Stop Date/Time Anesthesia Stop Date: 08/16/24 Anesthesia Stop Time: 08:53 Summary Extremes of Age - Over 70 or under 1: MDA
== END 2024-08-16 07:36 | disposition home or self-care (01) ==
LOC: OP CLINIC 07:36
PROVIDERS: PCP Family Medicine; Visit Provider Internal Medicine
DX: Z12.11 Encounter for screening for malignant neoplasm of colon (principal); K57.30 Diverticulosis of large intestine without perforation or abscess without bleeding; Z86.0100 Personal history of colon polyps, unspecified
CPT/HCPCS: 00811; 00812; 45378; 99100; J2704

== ENCOUNTER 2025-01-07 09:24 | Outpatient (CLI) | payer MEDICARE, BC, SELFPAY | END 2025-01-07 09:25 | disposition home or self-care (01) | LOC: NFLDREF 01-08 14:42 | PROVIDERS: PCP Family Medicine; Referring Provider Family Medicine; Visit Provider Family Medicine | DX: E78.5 Hyperlipidemia, unspecified (principal); R79.89 Other specified abnormal findings of blood chemistry; M85.80 Other specified disorders of bone density and structure, unspecified site; E03.9 Hypothyroidism, unspecified; M81.0 Age-related osteoporosis without current pathological fracture | CPT/HCPCS: 80053; 80061; 82306; 82607; 84443 ==

== ENCOUNTER 2025-01-18 14:42 | Outpatient (CLI) | payer MEDICARE, BC, SELFPAY ==
[2025-01-18 15:52] VITALS: BP 128/60; PULSE 81; RESP 16
--- NOTE | 2025-01-18 15:57 | W.PM.STED ---
Stress Test Note Date Date Seen: 01/18/25 Date of test: 01/18/25 Providers Primary care provider: Grace Villanueva Stress test physician: Kirit Lamb Stress Test Note Stress test ordered: Stress Echo Indication for test: Chest pain, Results discussion: 74-year-old female presents here for the above test after discussion the risks benefits and side effects she would like to proceed, cardiac stress test medical history form is reviewed, pretest EKG shows normal sinus rhythm, with a ventricular rate of 56 and a blood pressure 126 on 83. Standard Isaias protocol is employed over a 4 minute. , she reached achieved a metabolic equivalent of 6 Mets, with a maximum heart rate of 145 which is 116% of the maximum, during this test she did have some fatigue, but no chest pain shortness of breath or any other anginal equivalent symptoms. During this test there is some mild ST wave irregularities, nondiagnostic of ischemia. Impression: Negative electrographic portion of stress echo, subjectively negative, Follow up suggested: Await echo images, clinical correlation with these will be needed, patient recovered normally left this testing facility in good condition.
== END 2025-01-18 15:53 | disposition home or self-care (01) ==
LOC: STRESS 14:42
PROVIDERS: PCP Family Medicine; Visit Provider Family Medicine
DX: R07.89 Other chest pain (principal); Z87.898 Personal history of other specified conditions
CPT/HCPCS: 93016; 93325; 93351

== ENCOUNTER 2025-06-20 08:34 | Outpatient (CLI) | payer MEDICARE, BC, SELFPAY ==
[2025-06-20 12:11] LABS: Free T4 Free Thyroxine* 1.45 ng/dL (0.70-1.85)
[2025-06-22 00:10] LABS: Free T3 2.5 pg/mL (2.5-4.3)
== END 2025-06-20 08:35 | disposition home or self-care (01) ==
LOC: NPINS 08:37
PROVIDERS: PCP Family Medicine; Visit Provider Internal Medicine Endocrinology, Diabetes & Metabolism
DX: E04.2 Nontoxic multinodular goiter (principal)
CPT/HCPCS: 84439; 84443; 84481